=== PATIENT | male | born 1970 | race Caucasian/White ===

== ENCOUNTER 2016-12-04 15:30 | Inpatient (IN) | payer OTHER ==
[2016-12-04 16:53] VITALS: BMI 26.4
[2016-12-04] MEDS ORDERED: IBUPROFEN 400 MG TABLET (FP) PO PRN (17:07)
[2016-12-04] MEDS ORDERED: MAGNESIUM HYDROX 2400MG/30ML ORAL SUSPENSION 30 ML CUP PO PRN (17:07)
[2016-12-04] MEDS ORDERED: MENTHOL/PHENOL 1 EACH UD MM PRN (17:07)
[2016-12-04] MEDS ORDERED: NICOTINE POLACRILEX 4 MG GUM BC PRN (17:07)
[2016-12-04] MEDS ORDERED: MAG HYDROX/AL HYDROX/SIMETH 30 ML UNIT-DOSE CUP PO PRN (17:07)
[2016-12-04] MEDS ORDERED: guaiFENesin/D-METHORPHAN HB 10 ML UNIT-DOSE CUPS PO PRN (17:07)
[2016-12-04] MEDS ORDERED: MAGNESIUM CITRATE 300 ML BOTTLE PO PRN (17:07)
[2016-12-04] MEDS ORDERED: hydrOXYzine PAMOATE 50 MG CAPSULE (FP) PO PRN (17:07)
[2016-12-04] MEDS ORDERED: ACETAMINOPHEN 325 MG TABLET (FP) PO PRN (17:07)
[2016-12-04] MEDS ORDERED: LOPERAMIDE HCL 2 MG CAPSULE PO PRN (17:07)
[2016-12-04] MEDS ORDERED: P-EPHED 60MG/TRIPROLIDI 2.5MG TABLET PO PRN (17:07)
--- NOTE | 2016-12-04 17:07 | HP ---
COWS - Scale Resting Pulse: 1= [place] 81-100 Sweatin= Chills/Flushing Restless Observation: 1= Difficult to Sit Still Pupil Size: 1= Pupils >than Normal Bone or Joint Aches: 1= Mild Discomfort Runny Nose/ Eye Tearin= Runny Nose/Eyes GI Upset > 30mins: 2= Nausea/Diarrhea Tremor Observation: 2= Slight Tremor Visible Yawning Observation: 1= 1-2x During Session Anxiety or Irritability: 2=Irritable/Anxious Goose Flesh Skin: 3=Piloerection COWS Score: 17 Admission [facility] Chief Complaint: heroin and cocaine withdrawal sx Allergies/Adverse Reactions: Allergies Allergy/AdvReac Type Severity Reaction Status Date / Time No Known Allergies Allergy Verified 12/04/16 17:01 History of Present Illness: 46 yo [facility], PMHX heroin, marijuana and cocaine dependence PMHX HIV+, no seizures, no DTS has been in detox 2002, completed treatment, not on any medications, nicotine dependence 1 PPD. no psychiatric history, no h/o suicide attmepts Exam Limitations: No Limitations - Ebola screening Have you traveled outside of the country in the last 21 days: No Have you had contact with anyone from an Ebola affected area: No Have you been sick,other than usual withdrawal symptoms: No - Review of Systems Constitutional: Chills, Diaphoresis, Loss of Appetite, Malaise, Night Sweats, Weakness, Unintentional Wgt. Loss EENT: reports: Nose Congestion Respiratory: reports: No Symptoms reported Cardiac: reports: No Symptoms Reported GI: reports: Nausea, Poor Appetite, Poor Fluid Intake, Indigestion, Abdominal cramping : reports: No Symptoms Reported Musculoskeletal: reports: Back Pain, Joint Pain, Muscle Pain, Muscle Weakness, Neck Pain Integumentary: reports: Flushing, Sweating Endocrine: reports: No Symptoms Reported Hematology: reports: No Symptoms Reported Psychiatric: reports: Judgement Intact, Mood/Affect Appropiate, Orientated x3, Anxious, Depressed Other Systems: Reviewed and Negative Patient History - Patient Medical History Hx Anemia: No Hx Asthma: No Hx Chronic Obstructive Pulmonary Disease (COPD): No Hx Cancer: No Hx Cardiac Disorders: No Hx Congestive Heart Failure: No Hx Hypertension: No Hx Pacemaker: No HX Cerebrovascular Accident: No Hx Seizures: No Hx Dementia: No Hx Diabetes: No Hx Gastrointestinal Disorders: No Hx Liver Disease: No Hx Genitourinary Disorders: No Hx Sexually Transmitted Disorders: No Hx Renal Disease (ESRD): No Hx Thyroid Disease: No Hx Human Immunodeficiency Virus (HIV): No Hx Hepatitis C: Yes Hx Depression: No Hx Suicide Attempt: No Hx Bipolar Disorder: Yes Hx Schizophrenia: No - Patient Surgical History Past Surgical History: No Anesthesia Reaction: No - PPD History Previous Implant?: Yes Documented Results: Negative w/o proof Implanted On Prior [facility] Admission?: No PPD to be Administered?: Yes - Reproductive History Patient is a Female of Child Bearing Age (11 -55 yrs old): No Patient : No - Smoking Cessation Smoking history: Current every day smoker Have you smoked in the past 12 months: Yes Aproximately how many cigarettes per day: 20 Hx Chewing Tobacco Use: No Initiated information on smoking cessation: Yes 'Breaking Loose' booklet given: 12/04/16 - Substance & Tx. History Hx Alcohol Use: No Hx Substance Use: Yes Substance Use Type: Cocaine, Heroin, Marijuana, Opiates, Prescribed Hx Substance Use Treatment: Yes - Substances Abused Heroin Route: Injection Frequency: Daily Amount used: 3-4 bags Age of first use: 14 Date of Last Use: 12/03/16 Crack Route: Smoking Frequency: Daily Amount used: $300 Age of first use: 45 Date of Last Use: 12/03/16 Marijuana/Hashish Route: Smoking Frequency: Daily Amount used: 3-4 bags Age of first use: 15 Date of Last Use: 12/03/16 Family Disease History - Family Disease History Family Disease History: Diabetes: Grandparent (alcohol and cocaine addiction), Father, Mother, Heart Disease: Grandparent, Father, Mother, Other: Grandparent Admission Physical Exam BHS - Vital Signs Vital Signs: Vital Signs - 24 hr 12/04/16 16:51 Temperature 98.4 F Pulse Rate 90 Respiratory 18 Rate Blood Pressure 137/76 - Physical General Appearance: Yes: Nourished, Appropriately Dressed, Disheveled, Mild Distress, Thin, Tremorous, Irritable, Sweating, Anxious HEENTM: Yes: EOMI, Hearing grossly Normal, Normal ENT Inspection, Normocephalic , Normal Voice, Pharynx Normal, Nasal Congestion, Rhinorrhea Respiratory: Yes: Within Normal Limits, Chest Non-Tender, Lungs Clear, Normal Breath Sounds, No Respiratory Distress, No Accessory Muscle Use Neck: Yes: Within Normal Limits, No masses,lesions,Nodules, Supple, Trachea in good position Breast: Yes: Breast Exam Deferred Cardiology: Yes: Within Normal Limits, Regular Rhythm, Regular Rate, S1, S2 Abdominal: Yes: Normal Bowel Sounds, Non Tender, Flat, Increased Bowel Sounds Genitourinary: Yes: Within Normal Limits Back: Yes: Normal Inspection, Muscle Spasm Musculoskeletal: Yes: full range of Motion, Gait Steady, Pelvis Stable, Back pain, Muscle weakness Extremities: Yes: Normal Capillary Refill, Normal Inspection, Normal Range of Motion, Non-Tender, Tremors Neurological: Yes: global account manager II-XII NML intact, Fully Oriented, Alert, Motor Strength 5/5, Normal Response, Depressed Affect Integumentary: Yes: Normal Color, Warm, Diaphoresis, Moist, [place] Lymphatic: Yes: Within Normal Limits - Addiitonal Findings: heroin withdrawal sx - Diagnostic (1) AIDS (acquired immune deficiency syndrome) Current Visit: Yes Status: Chronic (2) Bipolar disorder Current Visit: Yes Status: Suspected (3) Cannabis dependence Current Visit: Yes Status: Chronic (4) Cocaine dependence, uncomplicated Current Visit: Yes Status: Chronic (5) Hepatitis C Current Visit: Yes Status: Chronic (6) Nicotine dependence Current Visit: Yes Status: Chronic (7) Opioid dependence with withdrawal Current Visit: Yes Status: Chronic Cleared for Admission [facility] - Detox or Rehab [facility] Level of Care: Medically Managed Detox Regimen/Protocol: Methadone [facility] Breath Alcohol Content Breath Alcohol Content: 0 Urine Drug Screen - Results Drug Screen Negative: No Urine Drug Screen Results: THC-Marijuana, JED-Cocaine, OPI-Opiates
[2016-12-04] MEDS ORDERED: METHADONE HCL 10 MG TABLET (FOR DETOX USE ONLY) PO ONE ×2 (17:30→23:00)
[2016-12-04] MEDS: diazePAM 5 MG TABLET PO PRN (18:59)
[2016-12-04] MEDS: NICOTINE 21 MG/24 HOURS TOPICAL PATCH TD SCH (19:05)
[2016-12-04 21:53] LABS: URINE APPEARANCE CLEAR; URINE BILIRUBIN NEGATIVE (NEGATIVE); URINE BLOOD NEGATIVE (NEGATIVE); URINE COLOR YELLOW; URINE GLUCOSE (UA) NEGATIVE (NEGATIVE); URINE KETONE NEGATIVE (NEGATIVE); URINE LEUK ESTERASE NEGATIVE (NEGATIVE); URINE NITRITE NEGATIVE (NEGATIVE); URINE PROTEIN NEGATIVE (NEGATIVE)
[2016-12-04] MEDS: THIAMINE HCL 100 MG TABLET (FP) PO SCH (22:23)
[2016-12-04] MEDS: ZOLPIDEM TARTRATE 5 MG TABLET PO PRN (22:23)
--- NOTE | 2016-12-05 09:14 | CONSULT ---
[facility] Psychiatric Consult - Data Date of interview: 12/05/16 Admission source: [facility] Identifying data: This is 46 years old male with history of Bipolar Disorder intoxicated with: Opioids, Cocaine, Cannabis and Nicotine Substance Abuse History: - Smoking Cessation. Smoking history: Current every day smoker. Have you smoked in the past 12 months: Yes. Aproximately how many cigarettes per day: 20. Hx Chewing Tobacco Use: No. Initiated information on smoking cessation: Yes. 'Breaking Loose' booklet given: 12/04/16. - Substance & Tx. History. Hx Alcohol Use: No. Hx Substance Use: Yes. Substance Use Type : Cocaine, Heroin, Marijuana, Opiates, Prescribed. Hx Substance Use Treatment: Yes. - Substances Abused. Heroin. Route: Injection. Frequency: Daily. Amount used: 3-4 bags. Age of first use: 14. Date of Last Use: 12/03/16. Crack. Route: Smoking. Frequency: Daily. Amount used: $300. Age of first use : 45. Date of Last Use: 12/03/16. Marijuana/Hashish. Route: Smoking. Frequency: Daily. Amount used: 3-4 bags. Age of first use: 15. Date of Last Use: 12/03/16 Medical History: AIDS, HepC+ Psychiatric History: Patient reports to carry Bipolar disorder, reports taking prior to admission: [place] Carbonate 300mg po bid Physical/Sexual Abuse/Trauma History: Denies Additional Comment: [place] Carbonate 300mg po bid Mental Status Exam - Mental Status Exam Alert and Oriented to: Person Patient Appearance: Unkempt Mood: Anxious Affect: Mood Congruent Patient Behavior: Cooperative Speech Pattern: Excessive, Pressured Voice Loudness: Mildly Loud Thought Process: Goal Oriented Thought Disorder: Being Controlled Hallucinations: Denies Suicidal Ideation: Denies Homicidal Ideation: Denies Sleep: Difficulty falling asleep Appetite: Fair Muscle strength/Tone: Normal Gait/Station: Normal Additional Comments: [place] Carbonate 300mg po bid Psychiatric Findings - Problem List ([place] 1, 2,3) (1) Cannabis dependence Current Visit: Yes Status: Chronic (2) Cocaine dependence, uncomplicated Current Visit: Yes Status: Chronic (3) Nicotine dependence Current Visit: Yes Status: Chronic (4) Opioid dependence with withdrawal Current Visit: Yes Status: Chronic (5) Bipolar disorder Current Visit: Yes Status: Suspected - Initial Treatment Plan Initial Treatment Plan: [place] Carbonate 300mg po bid
[2016-12-05 09:56] LABS: MCH 32.2 pg (25.7-33.7); MCHC 33.6 g/dl (32.0-35.9); MEAN CELL VOLUME 95.8 fl (80-96); MEAN PLT VOLUME 9.1 fl (7.5-11.1); PLATELET COUNT 169 K/MM3 (134-434); RDW 14.1 % (11.9-15.9); WHITE BLOOD COUNT 7.1 K/mm3 (4.0-10.0)
[2016-12-05] MEDS ORDERED: METHADONE HCL 10 MG TABLET (FOR DETOX USE ONLY) PO ONE (10:00)
[2016-12-05 10:18] LABS: ALBUMIN 3.3 g/dl (3.4-5.0); ALK PHOS 70 U/L (45-117); ANION GAP 8 (8-16); BILIRUBIN,TOTAL 0.6 mg/dL (0.2-1.0); CALCIUM 8.7 mg/dL (8.5-10.1); CO2 28 mmol/L (21-32); GLUCOSE,RANDOM 86 mg/dL (74-106); SGOT/AST 20 U/L (15-37); SGPT/ALT 29 U/L (12-78)
[2016-12-05 10:22] LABS: SICKLE CELL SCREEN NEGATIVE (NEGATIVE)
[2016-12-05] MEDS: LITHIUM CARBONATE 300 MG CAPSULE (FP) PO SCH ×2 (11:17→22:22)
[2016-12-05] MEDS: PRENATAL VITAMINS W/ FOLIC ACID TABLET (FP) PO SCH (11:17)
[2016-12-05] MEDS: NICOTINE 21 MG/24 HOURS TOPICAL PATCH TD SCH (11:20)
[2016-12-05] MEDS: diazePAM 5 MG TABLET PO PRN ×3 (11:25→22:23)
--- NOTE | 2016-12-05 12:28 | EKG ---
Test Reason : Blood Pressure : / mmHG Vent. Rate : 080 BPM Atrial Rate : 080 BPM P-R Int : 134 ms QRS Dur : 092 ms QT Int : 378 ms P-R-T Axes : 074 099 069 degrees QTc Int : 435 ms NORMAL SINUS RHYTHM RIGHTWARD AXIS BORDERLINE ECG NO PREVIOUS ECGS AVAILABLE Confirmed by AZRA HUTCHINSON, MAURICE ([id number]) on 12/05/2016 12:28:04 PM Referred By: Confirmed By:MAURICE OQUENDO MD
--- NOTE | 2016-12-05 13:12 | PN ---
BHS COWS - Scale Resting Pulse: 1= [place] 81-100 Sweatin=Flushed/Facial Moisture Restless Observation: 1= Difficult to Sit Still Pupil Size: 0= Normal to Room Light Bone or Joint Aches: 2= Severe Diffuse Aches Runny Nose/ Eye Tearin= Nasal Congestion GI Upset > 30mins: 0= None Tremor Observation of Outstretched Hands: 2= Slight Tremor Visible Yawning Observation: 1= 1-2x During Session Anxiety or Irritability: 2=Irritable/Anxious Goose Flesh Skin: 3=Piloerection COWS Score: 15 BHS Progress Note (SOAP) Subjective: shakes sweats body aches interrupted sleep irritable Objective: 12/05/16 13:11 Vital Signs Temperature 98.2 F 12/05/16 10:06 Pulse Rate 98 H 12/05/16 10:06 Respiratory Rate 18 12/05/16 10:06 Blood Pressure 123/77 12/05/16 10:06 O2 Sat by Pulse Oximetry (%) Laboratory Tests 12/04/16 12/05/16 12/05/16 20:30 07:00 07:00 WBC 7.1 RBC 5.00 Hgb 16.1 Hct 47.9 MCV 95.8 MCH 32.2 MCHC 33.6 RDW 14.1 Plt Count 169 MPV 9.1 Sickle Cell Screen Negative Sodium 142 Potassium 3.7 Chloride 106 Carbon Dioxide 28 Anion Gap 8 BUN 13 Creatinine 1.0 Creat Clearance w eGFR > 60 Random Glucose 86 Calcium 8.7 Total Bilirubin 0.6 AST 20 ALT 29 Alkaline Phosphatase 70 Total Protein 7.0 Albumin 3.3 L Urine Color Yellow Urine Appearance Clear Urine pH 6.0 Ur Specific [place] 1.015 Urine Protein Negative Urine Glucose (UA) Negative Urine Ketones Negative Urine Blood Negative Urine Nitrite Negative Urine Bilirubin Negative Urine Urobilinogen 2.0 Ur Leukocyte Esterase Negative RPR Titer 12/05/16 07:00 WBC RBC Hgb Hct MCV MCH MCHC RDW Plt Count MPV Sickle Cell Screen Sodium Potassium Chloride Carbon Dioxide Anion Gap BUN Creatinine Creat Clearance w eGFR Random Glucose Calcium Total Bilirubin AST ALT Alkaline Phosphatase Total Protein Albumin Urine Color Urine Appearance Urine pH Ur Specific [place] Urine Protein Urine Glucose (UA) Urine Ketones Urine Blood Urine Nitrite Urine Bilirubin Urine Urobilinogen Ur Leukocyte Esterase RPR Titer Nonreactive awake/alert ambulating no acute distress Assessment: 12/05/16 13:12 withdrawal sx Plan: continue detox increase fluids
[2016-12-05] MEDS: ZOLPIDEM TARTRATE 5 MG TABLET PO PRN (22:22)
[2016-12-05] MEDS: THIAMINE HCL 100 MG TABLET (FP) PO SCH (22:23)
[2016-12-05] MEDS: MUPIROCIN 2% TOPICAL OINTMENT 22 GM TUBE NS SCH (22:23)
[2016-12-06] MEDS: METHADONE HCL 5 MG TABLET (FOR DETOX USE ONLY) PO ONE ×2 (10:58→10:59)
[2016-12-06] MEDS: diazePAM 5 MG TABLET PO PRN ×3 (10:58→22:05)
[2016-12-06] MEDS: PRENATAL VITAMINS W/ FOLIC ACID TABLET (FP) PO SCH (10:58)
[2016-12-06] MEDS: MUPIROCIN 2% TOPICAL OINTMENT 22 GM TUBE NS SCH ×2 (10:59→22:36)
[2016-12-06] MEDS: LITHIUM CARBONATE 300 MG CAPSULE (FP) PO SCH ×2 (11:00→22:04)
--- NOTE | 2016-12-06 11:14 | PN ---
[facility] CIWA - CIWA Score Nausea/Vomitin Muscle Tremors: 3 Anxiety: 2 Agitation: 2 Paroxysmal Sweats: 1-Minimal Palms Moist Orientation: 0-Oriented Tacttile Disturbances: 1-Very Mild Itch/Numbness Auditory Disturbances: 1-Very Mild Visual Disturbances: 0-None Headache: 2-Mild CIWA-Ar Total Score: 15 BHS COWS - Scale Resting Pulse: 1= [place] 81-100 Sweatin= Chills/Flushing Restless Observation: 3= Extraneous Movement Pupil Size: 1= Pupils >than Normal Bone or Joint Aches: 2= Severe Diffuse Aches Runny Nose/ Eye Tearin= Runny Nose/Eyes GI Upset > 30mins: 3= Vomiting/Diarrhea Tremor Observation of Outstretched Hands: 2= Slight Tremor Visible Yawning Observation: 1= 1-2x During Session Anxiety or Irritability: 2=Irritable/Anxious Goose Flesh Skin: 0=Smooth Skin COWS Score: 18 S Progress Note (SOAP) Subjective: ALERT,IRRITABLE,ANXIOUS,INTERRUPTED SLEEP,PAIN IN THE BODY AND BACK Objective: 12/06/16 11:12 Vital Signs Temperature 96.8 F L 12/06/16 10:02 Pulse Rate 91 H 12/06/16 10:02 Respiratory Rate 18 12/06/16 10:02 Blood Pressure 129/77 12/06/16 10:02 O2 Sat by Pulse Oximetry (%) EKG NSR, Laboratory Last Values WBC 7.1 K/mm3 (4.0-10.0) 12/05/16 07:00 RBC 5.00 M/mm3 (4.00-5.60) 12/05/16 07:00 Hgb 16.1 GM/dL (11.7-16.9) 12/05/16 07:00 Hct 47.9 % (35.4-49) 12/05/16 07:00 MCV 95.8 fl (80-96) 12/05/16 07:00 MCH 32.2 pg (25.7-33.7) 12/05/16 07:00 MCHC 33.6 g/dl (32.0-35.9) 12/05/16 07:00 RDW 14.1 % (11.9-15.9) 12/05/16 07:00 Plt Count 169 K/MM3 (134-434) 12/05/16 07:00 MPV 9.1 fl (7.5-11.1) 12/05/16 07:00 Sickle Cell Screen Negative (NEGATIVE) 12/05/16 07:00 Sodium 142 mmol/L (136-145) 12/05/16 07:00 Potassium 3.7 mmol/L (3.5-5.1) 12/05/16 07:00 Chloride 106 mmol/L (98-107) 12/05/16 07:00 Carbon Dioxide 28 mmol/L (21-32) 12/05/16 07:00 Anion Gap 8 (8-16) 12/05/16 07:00 BUN 13 mg/dL (7-18) 12/05/16 07:00 Creatinine 1.0 mg/dL (0.7-1.3) 12/05/16 07:00 Creat Clearance w eGFR > 60 (>60) 12/05/16 07:00 Random Glucose 86 mg/dL (74-106) 12/05/16 07:00 Calcium 8.7 mg/dL (8.5-10.1) 12/05/16 07:00 Total Bilirubin 0.6 mg/dL (0.2-1.0) 12/05/16 07:00 AST 20 U/L (15-37) 12/05/16 07:00 ALT 29 U/L (12-78) 12/05/16 07:00 Alkaline Phosphatase 70 U/L (45-117) 12/05/16 07:00 Total Protein 7.0 g/dl (6.4-8.2) 12/05/16 07:00 Albumin 3.3 g/dl (3.4-5.0) L 12/05/16 07:00 Urine Color Yellow 12/04/16 20:30 Urine Appearance Clear 12/04/16 20:30 Urine pH 6.0 (5.0-8.0) 12/04/16 20:30 Ur Specific [place] 1.015 (1.005-1.025) 12/04/16 20:30 Urine Protein Negative (NEGATIVE) 12/04/16 20:30 Urine Glucose (UA) Negative (NEGATIVE) 12/04/16 20:30 Urine Ketones Negative (NEGATIVE) 12/04/16 20:30 Urine Blood Negative (NEGATIVE) 12/04/16 20:30 Urine Nitrite Negative (NEGATIVE) 12/04/16 20:30 Urine Bilirubin Negative (NEGATIVE) 12/04/16 20:30 Urine Urobilinogen 2.0 mg/dL (0.2-1.0) 12/04/16 20:30 Ur Leukocyte Esterase Negative (NEGATIVE) 12/04/16 20:30 RPR Titer Nonreactive (NONREACTIVE) 12/05/16 07:00 Assessment: 12/06/16 11:13 WITHDRAWAL SYMPTOM Plan: CONTINUE DETOX
[2016-12-06] MEDS: NICOTINE 21 MG/24 HOURS TOPICAL PATCH TD SCH (13:21)
[2016-12-06] MEDS: THIAMINE HCL 100 MG TABLET (FP) PO SCH (22:04)
[2016-12-06] MEDS: ZOLPIDEM TARTRATE 5 MG TABLET PO PRN (22:04)
[2016-12-07] MEDS ORDERED: METHADONE HCL 5 MG TABLET (FOR DETOX USE ONLY) PO ONE (10:00)
[2016-12-07] MEDS: LITHIUM CARBONATE 300 MG CAPSULE (FP) PO SCH ×2 (10:56→23:09)
[2016-12-07] MEDS: PRENATAL VITAMINS W/ FOLIC ACID TABLET (FP) PO SCH (10:56)
[2016-12-07] MEDS: MUPIROCIN 2% TOPICAL OINTMENT 22 GM TUBE NS SCH ×2 (10:56→23:09)
[2016-12-07] MEDS: NICOTINE 21 MG/24 HOURS TOPICAL PATCH TD SCH (10:57)
[2016-12-07] MEDS: diazePAM 5 MG TABLET PO PRN (10:59)
--- NOTE | 2016-12-07 12:01 | PN ---
BHS Progress Note (SOAP) Subjective: SWEATS, SHAKES, BACK PAIN Objective: 12/07/16 12:00 Vital Signs - 8 hr 12/07/16 12/07/16 06:46 10:00 Temperature 96.8 F L 100.0 F H Pulse Rate 75 105 H Respiratory 16 18 Rate Blood Pressure 116/68 118/72 Laboratory Last Values WBC 7.1 K/mm3 (4.0-10.0) 12/05/16 07:00 RBC 5.00 M/mm3 (4.00-5.60) 12/05/16 07:00 Hgb 16.1 GM/dL (11.7-16.9) 12/05/16 07:00 Hct 47.9 % (35.4-49) 12/05/16 07:00 MCV 95.8 fl (80-96) 12/05/16 07:00 MCH 32.2 pg (25.7-33.7) 12/05/16 07:00 MCHC 33.6 g/dl (32.0-35.9) 12/05/16 07:00 RDW 14.1 % (11.9-15.9) 12/05/16 07:00 Plt Count 169 K/MM3 (134-434) 12/05/16 07:00 MPV 9.1 fl (7.5-11.1) 12/05/16 07:00 Sickle Cell Screen Negative (NEGATIVE) 12/05/16 07:00 Sodium 142 mmol/L (136-145) 12/05/16 07:00 Potassium 3.7 mmol/L (3.5-5.1) 12/05/16 07:00 Chloride 106 mmol/L (98-107) 12/05/16 07:00 Carbon Dioxide 28 mmol/L (21-32) 12/05/16 07:00 Anion Gap 8 (8-16) 12/05/16 07:00 BUN 13 mg/dL (7-18) 12/05/16 07:00 Creatinine 1.0 mg/dL (0.7-1.3) 12/05/16 07:00 Creat Clearance w eGFR > 60 (>60) 12/05/16 07:00 Random Glucose 86 mg/dL (74-106) 12/05/16 07:00 Calcium 8.7 mg/dL (8.5-10.1) 12/05/16 07:00 Total Bilirubin 0.6 mg/dL (0.2-1.0) 12/05/16 07:00 AST 20 U/L (15-37) 12/05/16 07:00 ALT 29 U/L (12-78) 12/05/16 07:00 Alkaline Phosphatase 70 U/L (45-117) 12/05/16 07:00 Total Protein 7.0 g/dl (6.4-8.2) 12/05/16 07:00 Albumin 3.3 g/dl (3.4-5.0) L 12/05/16 07:00 Urine Color Yellow 12/04/16 20:30 Urine Appearance Clear 12/04/16 20:30 Urine pH 6.0 (5.0-8.0) 12/04/16 20:30 Ur Specific [place] 1.015 (1.005-1.025) 12/04/16 20:30 Urine Protein Negative (NEGATIVE) 12/04/16 20:30 Urine Glucose (UA) Negative (NEGATIVE) 12/04/16 20:30 Urine Ketones Negative (NEGATIVE) 12/04/16 20:30 Urine Blood Negative (NEGATIVE) 12/04/16 20:30 Urine Nitrite Negative (NEGATIVE) 12/04/16 20:30 Urine Bilirubin Negative (NEGATIVE) 12/04/16 20:30 Urine Urobilinogen 2.0 mg/dL (0.2-1.0) 12/04/16 20:30 Ur Leukocyte Esterase Negative (NEGATIVE) 12/04/16 20:30 [place] 0 MEQ/L (0.6-1.2) L 12/06/16 06:00 RPR Titer Nonreactive (NONREACTIVE) 12/05/16 07:00 LAB NOTED Assessment: 12/07/16 12:00 WITHDRAWAL SX Plan: CONTINUE DETOX
[2016-12-07] MEDS: THIAMINE HCL 100 MG TABLET (FP) PO SCH (23:09)
[2016-12-07] MEDS: diphenhydrAMINE HCL 50 MG CAPSULE PO PRN (23:10)
[2016-12-08] MEDS ORDERED: METHADONE HCL 10 MG TABLET (FOR DETOX USE ONLY) PO ONE (10:00)
[2016-12-08] MEDS: PRENATAL VITAMINS W/ FOLIC ACID TABLET (FP) PO SCH (10:41)
[2016-12-08] MEDS: NICOTINE 21 MG/24 HOURS TOPICAL PATCH TD SCH (10:42)
[2016-12-08] MEDS: LITHIUM CARBONATE 300 MG CAPSULE (FP) PO SCH ×2 (10:43→22:38)
[2016-12-08] MEDS: MUPIROCIN 2% TOPICAL OINTMENT 22 GM TUBE NS SCH ×2 (10:44→22:38)
--- NOTE | 2016-12-08 19:30 | PN ---
[facility] Progress Note (SOAP) Objective: 12/08/16 19:29 Vital Signs - 8 hr 12/08/16 12/08/16 14:39 17:36 Temperature 98.1 F 97.7 F Pulse Rate 104 H 79 Respiratory 18 18 Rate Blood Pressure 134/80 128/74 Laboratory Last Values WBC 7.1 K/mm3 (4.0-10.0) 12/05/16 07:00 RBC 5.00 M/mm3 (4.00-5.60) 12/05/16 07:00 Hgb 16.1 GM/dL (11.7-16.9) 12/05/16 07:00 Hct 47.9 % (35.4-49) 12/05/16 07:00 MCV 95.8 fl (80-96) 12/05/16 07:00 MCH 32.2 pg (25.7-33.7) 12/05/16 07:00 MCHC 33.6 g/dl (32.0-35.9) 12/05/16 07:00 RDW 14.1 % (11.9-15.9) 12/05/16 07:00 Plt Count 169 K/MM3 (134-434) 12/05/16 07:00 MPV 9.1 fl (7.5-11.1) 12/05/16 07:00 Sickle Cell Screen Negative (NEGATIVE) 12/05/16 07:00 Sodium 142 mmol/L (136-145) 12/05/16 07:00 Potassium 3.7 mmol/L (3.5-5.1) 12/05/16 07:00 Chloride 106 mmol/L (98-107) 12/05/16 07:00 Carbon Dioxide 28 mmol/L (21-32) 12/05/16 07:00 Anion Gap 8 (8-16) 12/05/16 07:00 BUN 13 mg/dL (7-18) 12/05/16 07:00 Creatinine 1.0 mg/dL (0.7-1.3) 12/05/16 07:00 Creat Clearance w eGFR > 60 (>60) 12/05/16 07:00 Random Glucose 86 mg/dL (74-106) 12/05/16 07:00 Calcium 8.7 mg/dL (8.5-10.1) 12/05/16 07:00 Total Bilirubin 0.6 mg/dL (0.2-1.0) 12/05/16 07:00 AST 20 U/L (15-37) 12/05/16 07:00 ALT 29 U/L (12-78) 12/05/16 07:00 Alkaline Phosphatase 70 U/L (45-117) 12/05/16 07:00 Total Protein 7.0 g/dl (6.4-8.2) 12/05/16 07:00 Albumin 3.3 g/dl (3.4-5.0) L 12/05/16 07:00 Urine Color Yellow 12/04/16 20:30 Urine Appearance Clear 12/04/16 20:30 Urine pH 6.0 (5.0-8.0) 12/04/16 20:30 Ur Specific [place] 1.015 (1.005-1.025) 12/04/16 20:30 Urine Protein Negative (NEGATIVE) 12/04/16 20:30 Urine Glucose (UA) Negative (NEGATIVE) 12/04/16 20:30 Urine Ketones Negative (NEGATIVE) 12/04/16 20:30 Urine Blood Negative (NEGATIVE) 12/04/16 20:30 Urine Nitrite Negative (NEGATIVE) 12/04/16 20:30 Urine Bilirubin Negative (NEGATIVE) 12/04/16 20:30 Urine Urobilinogen 2.0 mg/dL (0.2-1.0) 12/04/16 20:30 Ur Leukocyte Esterase Negative (NEGATIVE) 12/04/16 20:30 [place] 0 MEQ/L (0.6-1.2) L 12/06/16 06:00 RPR Titer Nonreactive (NONREACTIVE) 12/05/16 07:00 labs noted Assessment: 12/08/16 19:30 Withdrawal sx.
[2016-12-08] MEDS: diphenhydrAMINE HCL 50 MG CAPSULE PO PRN (22:38)
[2016-12-08] MEDS: THIAMINE HCL 100 MG TABLET (FP) PO SCH (22:38)
[2016-12-09] MEDS ORDERED: METHADONE HCL 5 MG TABLET (FOR DETOX USE ONLY) PO ONE (06:00)
--- NOTE | 2016-12-09 09:02 | DS ---
[facility] Detox Discharge Summary Admission Date: 12/04/16 Discharge Date: 12/09/16 - History Present History: Cannabis Dependence, Cocaine Dependence, Opioid Dependence - Physical Exam Results Vital Signs: Vital Signs Temperature 97.7 F 12/09/16 06:00 Pulse Rate 87 12/09/16 06:00 Respiratory Rate 18 12/09/16 06:00 Blood Pressure 129/74 12/09/16 06:00 O2 Sat by Pulse Oximetry (%) - Treatment Hospital Course: Detox Protocol Followed, Detoxed Safely, Responded well, Discharged Condition Good, Rehab Referral Accepted - Medication Discharge Medications: Ambulatory Orders [place] Carbonate [Eskalith -] 300 mg PO BID #60 cap 12/05/16 - Diagnosis (1) AIDS (acquired immune deficiency syndrome) Current Visit: Yes Status: Chronic (2) Cannabis dependence Current Visit: Yes Status: Chronic (3) Cocaine dependence, uncomplicated Current Visit: Yes Status: Chronic (4) Hepatitis C Current Visit: Yes Status: Chronic Qualifiers: Viral hepatitis chronicity: chronic Hepatic coma status: without hepatic coma Qualified Code(s): B18.2 - Chronic viral hepatitis C (5) Nicotine dependence Current Visit: Yes Status: Chronic Qualifiers: Nicotine product type: cigarettes Substance use status: uncomplicated Qualified Code(s): F17.210 - Nicotine dependence, cigarettes, uncomplicated (6) Opioid dependence with withdrawal Current Visit: Yes Status: Chronic - AMA Did Patient Leave Against Medical Advice: No (going [facility])
[2016-12-09 09:53] VITALS: BP 136/77; PULSE 114; TEMP 97.3
[2016-12-09] MEDS: PRENATAL VITAMINS W/ FOLIC ACID TABLET (FP) PO SCH (10:52)
[2016-12-09] MEDS: LITHIUM CARBONATE 300 MG CAPSULE (FP) PO SCH (10:52)
[2016-12-09] MEDS: MUPIROCIN 2% TOPICAL OINTMENT 22 GM TUBE NS SCH (10:52)
[2016-12-09] MEDS: NICOTINE 21 MG/24 HOURS TOPICAL PATCH TD SCH (10:53)
== END 2016-12-09 11:42 | disposition home or self-care (01) | DRG 896 ==
LOC: YASAS 15:30 → Y6N 17:59
PROVIDERS: ADMIT Internal Medicine Addiction Medicine; ATTEND Internal Medicine Addiction Medicine
PROC: HZ2ZZZZ Detoxification Services for Substance Abuse Treatment (ICD-10-PCS; principal; 2016-12-04)
DX: F19.230 Other psychoactive substance dependence with withdrawal, uncomplicated (principal); B20 Human immunodeficiency virus [HIV] disease; F14.20 Cocaine dependence, uncomplicated; F11.23 Opioid dependence with withdrawal; F12.20 Cannabis dependence, uncomplicated; F17.210 Nicotine dependence, cigarettes, uncomplicated; F31.9 Bipolar disorder, unspecified; B18.2 Chronic viral hepatitis C
CPT/HCPCS: 36415; 80053; 80178; 81003; 85027; 85660; 86593; 93005; 93010

== ENCOUNTER 2017-02-09 10:04 | Inpatient (IN) | payer OTHER ==
[2017-02-09 10:53] VITALS: BMI 24.6
--- NOTE | 2017-02-09 11:39 | HP ---
CIWA Score - CIWA Score Nausea/Vomitin (N/V) Muscle Tremors: 1-None Visible, but [place] Anxiety: 4-Mod. Anxious/Guarded Agitation: 4-Moderately Restless Paroxysmal Sweats: 1-Minimal Palms Moist Orientation: 0-Oriented Tacttile Disturbances: 3-Moderate Itch/Numb/Burn Auditory Disturbances: 0-None Visual Disturbances: 0-None Headache: 1-Very Mild CIWA-Ar Total Score: 19 Admission ROS BHS - HPI Chief Complaint: DETOX TX FOR ALCOHOL WITHDRAWAL SX Allergies/Adverse Reactions: Allergies Allergy/AdvReac Type Severity Reaction Status Date / Time No Known Allergies Allergy Verified 02/09/17 10:56 History of Present Illness: 46 Y/O H/M WITH A HX OF ALCOHOL,COCAINE AND MARIJUANA DEPENDENCE SEEKING DETOX TX. Exam Limitations: No Limitations - Ebola screening Have you traveled outside of the country in the last 21 days: No Have you had contact with anyone from an Ebola affected area: No Have you been sick,other than usual withdrawal symptoms: No Do you have a fever: No - Review of Systems Constitutional: Chills, Loss of Appetite, Night Sweats, Changes in sleep, Unintentional Wgt. Loss EENT: reports: Blurred Vision, Tearing, Recent change in vision ("I SUPPOSED TO WEAR GLASSES'), Nose Congestion Respiratory: reports: No Symptoms reported Cardiac: reports: Lightheadedness GI: reports: Diarrhea, Nausea, Poor Appetite, Poor Fluid Intake, Vomiting : reports: Frequency Musculoskeletal: reports: No Symptoms Reported Integumentary: reports: No Symptoms Reported Neuro: reports: Headache, Tremors, Unsteady Gait, Dizziness Endocrine: reports: No Symptoms Reported Hematology: reports: No Symptoms Reported Psychiatric: reports: Anxious Other Systems: Reviewed and Negative Patient History - Patient Medical History Hx Anemia: No Hx Asthma: No Hx Chronic Obstructive Pulmonary Disease (COPD): No Hx Cancer: No Hx Cardiac Disorders: No Hx Congestive Heart Failure: No Hx Hypertension: No Hx Pacemaker: No HX Cerebrovascular Accident: No Hx Seizures: No Hx Dementia: No Hx Diabetes: No Hx Gastrointestinal Disorders: No Hx Liver Disease: No Hx Genitourinary Disorders: No Hx Sexually Transmitted Disorders: No Hx Renal Disease (ESRD): No Hx Thyroid Disease: No Hx Human Immunodeficiency Virus (HIV): Yes (SINCE 1996;STOPPED TAKING MEDS X 7 MONTHS.) Hx Hepatitis C: Yes (IN THE PROCESS OF TREATMENT WITH NEW MEDICATION) Hx Depression: Yes Hx Suicide Attempt: No Hx Bipolar Disorder: Yes (ON LITHIUM +) Hx Schizophrenia: No - Patient Surgical History Past Surgical History: No Hx Neurologic Surgery: No Hx Cataract Extraction: No Hx Cardiac Surgery: No Hx Lung Surgery: No Hx Breast Surgery: No Hx Breast Biopsy: No Hx Abdominal Surgery: No Hx Appendectomy: No Hx Cholecystectomy: No Hx Genitourinary Surgery: No Hx Orthopedic Surgery: No Anesthesia Reaction: No - PPD History Previous Implant?: Yes Documented Results: Negative w/proof Implanted On Prior [facility] Admission?: Yes Date: 12/06/16 PPD to be Administered?: No - Reproductive History Patient is a Female of Child Bearing Age (11 -55 yrs old): No (MALE) - Smoking Cessation Smoking history: Current every day smoker Have you smoked in the past 12 months: Yes Aproximately how many cigarettes per day: 20 Hx Chewing Tobacco Use: No Initiated information on smoking cessation: Yes 'Breaking Loose' booklet given: 02/09/17 - Substance & Tx. History Hx Alcohol Use: Yes (BARCADI/BEER) Hx Substance Use: Yes (CRACK/MARIJUANA) Substance Use Type: Alcohol, Cocaine, Marijuana Hx Substance Use Treatment: Yes (LAST TX AT [facility] DETOX) - Substances Abused Alcohol Route: Oral Frequency: Daily Amount used: rum(1 pint)/beer-(6-7 cans24 oz) Age of first use: 14 Date of Last Use: 02/08/17 Crack Route: Smoking Frequency: Daily Amount used: $170 Age of first use: 45 Date of Last Use: 02/08/17 Family Disease History - Family Disease History Family Disease History: Diabetes: Grandparent (alcohol and cocaine addiction), Father, Mother, Heart Disease: Grandparent, Father, Mother, Other: Grandparent Admission Physical Exam BHS - Vital Signs Vital Signs: Vital Signs - 24 hr 02/09/17 10:39 Temperature 97.3 F L Pulse Rate 80 Respiratory 120 H Rate Blood Pressure 116/77 - Physical General Appearance: Yes: Moderate Distress, Alcohol on Breath, Intoxicated, Irritable, Anxious HEENTM: Yes: EOMI, Normocephalic, SONIA, Pharynx Normal, Nasal Congestion, Rhinorrhea Respiratory: Yes: Chest Non-Tender, Lungs Clear, Normal Breath Sounds, No Respiratory Distress Neck: Yes: No masses,lesions,Nodules, Supple, Trachea in good position Breast: Yes: Breast Exam Deferred Cardiology: Yes: Regular Rhythm, Regular Rate, S1, S2 Abdominal: Yes: Normal Bowel Sounds, Non Tender, Flat, Soft Genitourinary: Yes: Other (N/C) Back: Yes: Within Normal Limits Musculoskeletal: Yes: full range of Motion, Gait Steady Extremities: Yes: Normal Range of Motion, Non-Tender Neurological: Yes: tig welder II-XII NML intact, Fully Oriented, Alert, Motor Strength 5/5 Integumentary: Yes: Dry, Warm Lymphatic: Yes: Within Normal Limits - Diagnostic (1) AIDS (acquired immune deficiency syndrome) Current Visit: Yes Status: Chronic (2) Cannabis dependence Current Visit: Yes Status: Acute (3) Cocaine dependence, uncomplicated Current Visit: Yes Status: Acute (4) Hepatitis C Current Visit: No Status: Chronic Qualifiers: Viral hepatitis chronicity: chronic Hepatic coma status: without hepatic coma Qualified Code(s): B18.2 - Chronic viral hepatitis C (5) Nicotine dependence Current Visit: Yes Status: Acute Qualifiers: Nicotine product type: cigarettes Substance use status: uncomplicated Qualified Code(s): F17.210 - Nicotine dependence, cigarettes, uncomplicated (6) Opioid dependence with withdrawal Current Visit: No Status: Inactive Cleared for Admission [facility] - Detox or Rehab [facility] Level of Care: Medically Managed Detox Regimen/Protocol: Librium [facility] Breath Alcohol Content Breath Alcohol Content: 0 Urine Drug Screen - Results Drug Screen Negative: No Urine Drug Screen Results: THC-Marijuana, JED-Cocaine
[2017-02-09] MEDS ORDERED: MAGNESIUM CITRATE 300 ML BOTTLE PO PRN (12:43)
[2017-02-09] MEDS ORDERED: NICOTINE POLACRILEX 4 MG GUM BC PRN (12:43)
[2017-02-09] MEDS ORDERED: P-EPHED 60MG/TRIPROLIDI 2.5MG TABLET PO PRN (12:43)
[2017-02-09] MEDS ORDERED: chlordiazePOXIDE HCL 25 MG CAPSULE PO PRN (12:43)
[2017-02-09] MEDS ORDERED: guaiFENesin/D-METHORPHAN HB 10 ML UNIT-DOSE CUPS PO PRN (12:43)
[2017-02-09] MEDS ORDERED: IBUPROFEN 400 MG TABLET (FP) PO PRN (12:43)
[2017-02-09] MEDS ORDERED: MAGNESIUM HYDROX 2400MG/30ML ORAL SUSPENSION 30 ML CUP PO PRN (12:43)
[2017-02-09] MEDS ORDERED: LOPERAMIDE HCL 2 MG CAPSULE PO PRN (12:43)
[2017-02-09] MEDS ORDERED: MAG HYDROX/AL HYDROX/SIMETH 30 ML UNIT-DOSE CUP PO PRN (12:43)
[2017-02-09] MEDS ORDERED: chlordiazePOXIDE HCL 25 MG CAPSULE PO ONE (12:43)
[2017-02-09] MEDS ORDERED: ACETAMINOPHEN 325 MG TABLET (FP) PO PRN (12:43)
[2017-02-09] MEDS ORDERED: hydrOXYzine PAMOATE 25 MG CAPSULE (FP) PO PRN (12:43)
[2017-02-09] MEDS ORDERED: MENTHOL/PHENOL 1 EACH UD MM PRN (12:43)
[2017-02-09] MEDS: NICOTINE 21 MG/24 HOURS TOPICAL PATCH TD SCH (13:02)
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
[2017-02-09] MEDS: GABAPENTIN 300 MG CAPSULE (FP) PO SCH ×2 (14:42→22:54)
--- NOTE | 2017-02-09 15:36 | EKG ---
Test Reason : Blood Pressure : / mmHG Vent. Rate : 086 BPM Atrial Rate : 086 BPM P-R Int : 130 ms QRS Dur : 076 ms QT Int : 360 ms P-R-T Axes : 077 096 067 degrees QTc Int : 430 ms NORMAL SINUS RHYTHM RIGHTWARD AXIS ATRIAL ABNORMALITY BORDERLINE ECG WHEN COMPARED WITH ECG OF 04-DEC-2016 18:04, NO SIGNIFICANT CHANGE WAS FOUND Confirmed by MANJEET CHRISTOPHER MD ([id number]) on 02/09/2017 3:36:36 PM Referred By: Confirmed By:MANJEET CHRISTOPHER MD
[2017-02-09 16:29] LABS: URINE APPEARANCE CLEAR; URINE BILIRUBIN NEGATIVE (NEGATIVE); URINE BLOOD NEGATIVE (NEGATIVE); URINE COLOR LTYELLOW; URINE GLUCOSE (UA) NEGATIVE (NEGATIVE); URINE KETONE NEGATIVE (NEGATIVE); URINE NITRITE NEGATIVE (NEGATIVE); URINE PROTEIN NEGATIVE (NEGATIVE); URINE UROBILINOGEN NEGATIVE mg/dL (0.2-1.0)
[2017-02-09] MEDS: chlordiazePOXIDE HCL 25 MG CAPSULE PO SCH ×2 (16:34→22:56)
[2017-02-09] MEDS: LITHIUM CARBONATE 300 MG CAPSULE (FP) PO SCH ×2 (17:57→22:53)
[2017-02-09 18:57] LABS: URINE LEUK ESTERASE Negative (NEGATIVE)
[2017-02-09] MEDS: THIAMINE HCL 100 MG TABLET (FP) PO SCH (22:54)
[2017-02-09] MEDS: ZOLPIDEM TARTRATE 5 MG TABLET PO PRN (22:54)
[2017-02-10] MEDS: chlordiazePOXIDE HCL 25 MG CAPSULE PO SCH ×4 (05:53→22:24)
[2017-02-10] MEDS: GABAPENTIN 300 MG CAPSULE (FP) PO SCH ×3 (05:53→22:25)
[2017-02-10] MEDS: LITHIUM CARBONATE 300 MG CAPSULE (FP) PO SCH ×3 (06:15→22:56)
[2017-02-10 09:55] LABS: MCH 31.4 pg (25.7-33.7); MCHC 33.4 g/dl (32.0-35.9); MEAN PLT VOLUME 8.6 fl (7.5-11.1); PLATELET COUNT 231 K/MM3 (134-434); WHITE BLOOD COUNT 9.9 K/mm3 (4.0-10.0)
[2017-02-10 10:11] LABS: SGOT/AST 32 U/L (15-37); SGPT/ALT 49 U/L (12-78)
[2017-02-10 10:14] LABS: ALBUMIN 3.2 g/dl (3.4-5.0); ALK PHOS 64 U/L (45-117); ANION GAP 9 (8-16); BILIRUBIN,TOTAL 0.4 mg/dL (0.2-1.0); CALCIUM 8.9 mg/dL (8.5-10.1); CO2 24 mmol/L (21-32); CREATININE 1.1 mg/dL (0.7-1.3); GLUCOSE,RANDOM 145 mg/dL (74-106); TOT PROT 7.6 g/dl (6.4-8.2)
[2017-02-10] MEDS: PRENATAL VITAMINS W/ FOLIC ACID TABLET (FP) PO SCH (10:22)
[2017-02-10] MEDS: NICOTINE 21 MG/24 HOURS TOPICAL PATCH TD SCH (10:22)
--- NOTE | 2017-02-10 10:32 | PN ---
[facility] CIWA - CIWA Score Nausea/Vomitin (DIARRHEA) Muscle Tremors: 4-Moderate,w/Arms Extend Anxiety: 4-Mod. Anxious/Guarded Agitation: 4-Moderately Restless Paroxysmal Sweats: 1-Minimal Palms Moist Orientation: 0-Oriented Tacttile Disturbances: 3-Moderate Itch/Numb/Burn Auditory Disturbances: 0-None Visual Disturbances: 0-None Headache: 0-None Present CIWA-Ar Total Score: 19 BHS Progress Note (SOAP) Subjective: C/O ANXIETY,SWEATS,RESTLESSNESS,DIARRHEA. Objective: 02/10/17 10:31 Vital Signs Temperature 99.3 F 02/10/17 09:05 Pulse Rate 108 H 02/10/17 09:05 Respiratory Rate 20 02/10/17 09:05 Blood Pressure 126/73 02/10/17 09:05 O2 Sat by Pulse Oximetry (%) Laboratory Last Values WBC 9.9 K/mm3 (4.0-10.0) D 02/10/17 07:00 RBC 4.96 M/mm3 (4.00-5.60) 02/10/17 07:00 Hgb 15.5 GM/dL (11.7-16.9) 02/10/17 07:00 Hct 46.6 % (35.4-49) 02/10/17 07:00 MCV 94.0 fl (80-96) 02/10/17 07:00 MCH 31.4 pg (25.7-33.7) 02/10/17 07:00 MCHC 33.4 g/dl (32.0-35.9) 02/10/17 07:00 RDW 14.0 % (11.9-15.9) 02/10/17 07:00 Plt Count 231 K/MM3 (134-434) D 02/10/17 07:00 MPV 8.6 fl (7.5-11.1) 02/10/17 07:00 Urine Color Ltyellow 02/09/17 15:30 Urine Appearance Clear 02/09/17 15:30 Urine pH 7.0 (5.0-8.0) 02/09/17 15:30 Ur Specific [place] 1.008 (1.001-1.035) 02/09/17 15:30 Urine Protein Negative (NEGATIVE) 02/09/17 15:30 Urine Glucose (UA) Negative (NEGATIVE) 02/09/17 15:30 Urine Ketones Negative (NEGATIVE) 02/09/17 15:30 Urine Blood Negative (NEGATIVE) 02/09/17 15:30 Urine Nitrite Negative (NEGATIVE) 02/09/17 15:30 Urine Bilirubin Negative (NEGATIVE) 02/09/17 15:30 Urine Urobilinogen Negative mg/dL (0.2-1.0) 02/09/17 15:30 Ur Leukocyte Esterase Negative (NEGATIVE) 02/09/17 15:30 OTHER LABSPENDING Assessment: 02/10/17 10:31 WITHDRAWAL SX Plan: CONTINUE DETOX IMODIUM NEEDED
[2017-02-10] MEDS: ZOLPIDEM TARTRATE 5 MG TABLET PO PRN (22:24)
[2017-02-10] MEDS: THIAMINE HCL 100 MG TABLET (FP) PO SCH (22:24)
[2017-02-10] MEDS ORDERED: LITHIUM CARBONATE 300 MG, LITHIUM CARBONATE 150 MG PO SCH (22:45)
[2017-02-10] MEDS ORDERED: LITHIUM CARBONATE 150 MG CAPSULE ONE (22:47)
[2017-02-10] MEDS ORDERED: LITHIUM CARBONATE 300 MG CAPSULE (FP) ONE (22:47)
[2017-02-10] MEDS: LITHIUM CARBONATE 150 MG CAPSULE PO SCH (22:55)
[2017-02-11] MEDS: LITHIUM CARBONATE 150 MG CAPSULE PO SCH (05:23)
[2017-02-11] MEDS: chlordiazePOXIDE HCL 25 MG CAPSULE PO SCH ×2 (05:23→10:25)
[2017-02-11] MEDS: GABAPENTIN 300 MG CAPSULE (FP) PO SCH (05:23)
[2017-02-11 09:12] VITALS: BP 125/73; PULSE 103; TEMP 98.3
[2017-02-11] MEDS: PRENATAL VITAMINS W/ FOLIC ACID TABLET (FP) PO SCH (10:25)
[2017-02-11] MEDS: NICOTINE 21 MG/24 HOURS TOPICAL PATCH TD SCH (10:25)
--- NOTE | 2017-02-11 10:42 | PN ---
[facility] CIWA - CIWA Score Nausea/Vomitin-No Nausea/No Vomiting Muscle Tremors: 3 Anxiety: 5 Agitation: 4-Moderately Restless Paroxysmal Sweats: 1-Minimal Palms Moist Orientation: 0-Oriented Tacttile Disturbances: 3-Moderate Itch/Numb/Burn Auditory Disturbances: 0-None Visual Disturbances: 0-None Headache: 0-None Present CIWA-Ar Total Score: 16 BHS Progress Note (SOAP) Subjective: IRRITABILITY,SWEATS,ANXIETY. Objective: 02/11/17 10:41 Vital Signs Temperature 98.3 F 02/11/17 09:11 Pulse Rate 103 H 02/11/17 09:11 Respiratory Rate 18 02/11/17 09:11 Blood Pressure 125/73 02/11/17 09:11 O2 Sat by Pulse Oximetry (%) Laboratory Last Values WBC 9.9 K/mm3 (4.0-10.0) D 02/10/17 07:00 RBC 4.96 M/mm3 (4.00-5.60) 02/10/17 07:00 Hgb 15.5 GM/dL (11.7-16.9) 02/10/17 07:00 Hct 46.6 % (35.4-49) 02/10/17 07:00 MCV 94.0 fl (80-96) 02/10/17 07:00 MCH 31.4 pg (25.7-33.7) 02/10/17 07:00 MCHC 33.4 g/dl (32.0-35.9) 02/10/17 07:00 RDW 14.0 % (11.9-15.9) 02/10/17 07:00 Plt Count 231 K/MM3 (134-434) D 02/10/17 07:00 MPV 8.6 fl (7.5-11.1) 02/10/17 07:00 Sodium 136 mmol/L (136-145) 02/10/17 07:00 Potassium 4.1 mmol/L (3.5-5.1) 02/10/17 07:00 Chloride 103 mmol/L (98-107) 02/10/17 07:00 Carbon Dioxide 24 mmol/L (21-32) 02/10/17 07:00 Anion Gap 9 (8-16) 02/10/17 07:00 BUN 11 mg/dL (7-18) 02/10/17 07:00 Creatinine 1.1 mg/dL (0.7-1.3) 02/10/17 07:00 Creat Clearance w eGFR > 60 (>60) 02/10/17 07:00 Random Glucose 145 mg/dL (74-106) H D 02/10/17 07:00 Calcium 8.9 mg/dL (8.5-10.1) 02/10/17 07:00 Total Bilirubin 0.4 mg/dL (0.2-1.0) D 02/10/17 07:00 AST 32 U/L (15-37) D 02/10/17 07:00 ALT 49 U/L (12-78) D 02/10/17 07:00 Alkaline Phosphatase 64 U/L (45-117) 02/10/17 07:00 Total Protein 7.6 g/dl (6.4-8.2) 02/10/17 07:00 Albumin 3.2 g/dl (3.4-5.0) L 02/10/17 07:00 Urine Color Ltyellow 02/09/17 15:30 Urine Appearance Clear 02/09/17 15:30 Urine pH 7.0 (5.0-8.0) 02/09/17 15:30 Ur Specific [place] 1.008 (1.001-1.035) 02/09/17 15:30 Urine Protein Negative (NEGATIVE) 02/09/17 15:30 Urine Glucose (UA) Negative (NEGATIVE) 02/09/17 15:30 Urine Ketones Negative (NEGATIVE) 02/09/17 15:30 Urine Blood Negative (NEGATIVE) 02/09/17 15:30 Urine Nitrite Negative (NEGATIVE) 02/09/17 15:30 Urine Bilirubin Negative (NEGATIVE) 02/09/17 15:30 Urine Urobilinogen Negative mg/dL (0.2-1.0) 02/09/17 15:30 Ur Leukocyte Esterase Negative (NEGATIVE) 02/09/17 15:30 [place] 1.1 MEQ/L (0.6-1.2) 02/10/17 07:00 RPR Titer Nonreactive (NONREACTIVE) 02/10/17 07:00 Assessment: 02/11/17 10:42 WITHDRAWAL SX Plan: CONTINUE DETOX
--- NOTE | 2017-02-11 12:58 | DS ---
[facility] Detox Discharge Summary Admission Date: 02/09/17 Discharge Date: 02/11/17 - History Present History: Alcohol Dependence, Cannabis Dependence, Cocaine Dependence Additional Comments: PT DECLINED TO CONTINUE WITH DETOX FOR PERSONAL REASONS. ALERT O X 3. NAD. PT WILL FOLLOW UP WITH HIS PRIMARY CARE NEEDED FOR MEDICAL MANAGEMENT OF COMORBID CONDITIONS. Pertinent Past History: AIDS HEP C - Physical Exam Results Vital Signs: Vital Signs Temperature 98.3 F 02/11/17 09:11 Pulse Rate 103 H 02/11/17 09:11 Respiratory Rate 18 02/11/17 09:11 Blood Pressure 125/73 02/11/17 09:11 O2 Sat by Pulse Oximetry (%) Pertinent Admission Physical Exam Findings: WITHDRAWAL SX - Treatment Hospital Course: Discharged Condition Good - Medication Discharge Medications: Ambulatory Orders Abacavir/Dolutegravir/Lamivudi [Triumeq Tablet] 1 tablet PO DAILY 02/09/17 Gabapentin 300 mg PO TID 02/09/17 [place] Carbonate [Eskalith -] 450 mg PO TID 02/09/17 - Diagnosis (1) AIDS (acquired immune deficiency syndrome) Current Visit: Yes Status: Chronic (2) Cannabis dependence Current Visit: Yes Status: Acute (3) Cocaine dependence, uncomplicated Current Visit: Yes Status: Acute (4) Hepatitis C Current Visit: No Status: Chronic Qualifiers: Viral hepatitis chronicity: chronic Hepatic coma status: without hepatic coma Qualified Code(s): B18.2 - Chronic viral hepatitis C (5) Nicotine dependence Current Visit: Yes Status: Acute Qualifiers: Nicotine product type: cigarettes Substance use status: uncomplicated Qualified Code(s): F17.210 - Nicotine dependence, cigarettes, uncomplicated (6) Alcohol dependence with uncomplicated withdrawal Current Visit: Yes Status: Acute - AMA Did Patient Leave Against Medical Advice: Yes (AMA)
[2017-02-11] MEDS ORDERED: chlordiazePOXIDE 5 MG CAPSULE PO SCH (17:00)
[2017-02-12] MEDS ORDERED: chlordiazePOXIDE HCL 10 MG CAPSULE PO SCH (17:00)
== END 2017-02-11 13:00 | disposition left against medical advice (07) | DRG 894 ==
LOC: YASAS 10:04 → Y3N 11:42
PROVIDERS: ADMIT Internal Medicine; ATTEND Internal Medicine
PROC: HZ2ZZZZ Detoxification Services for Substance Abuse Treatment (ICD-10-PCS; principal; 2017-02-09)
DX: F10.230 Alcohol dependence with withdrawal, uncomplicated (principal); F14.20 Cocaine dependence, uncomplicated; F19.282 Other psychoactive substance dependence with psychoactive substance-induced sleep disorder; F12.20 Cannabis dependence, uncomplicated; F17.210 Nicotine dependence, cigarettes, uncomplicated; F31.9 Bipolar disorder, unspecified; F19.24 Other psychoactive substance dependence with psychoactive substance-induced mood disorder; B18.2 Chronic viral hepatitis C; Z21 Asymptomatic human immunodeficiency virus [HIV] infection status
CPT/HCPCS: 36415; 80053; 80178; 81003; 85027; 86593; 93005; 93010

== ENCOUNTER 2018-04-02 18:18 | Inpatient (IN) | payer OTHER ==
[2018-04-02 18:43] VITALS: BMI 24.3
--- NOTE | 2018-04-02 19:52 | HP ---
CIWA Score - Admission Criteria [facility] Guidelines: Admission for Medically Managed Detox: Requires at least one of the followin. CIWA greater than 12 2. Seizures within the past 24 hours 3. Delirium tremens within the past 24 hours 4. Hallucinations within the past 24 hours 5. Acute intervention needed for co occurring medical disorder 6. Acute intervention needed for co occurring psychiatric disorder 7. Severe withdrawal that cannot be handled at a lower level of care (continued vomiting, continued diarrhea, abnormal vital signs) requiring intravenous medication and/or fluids 8. Admission ROS S - HPI Chief Complaint: REHAB SERVICES Allergies/Adverse Reactions: Allergies Allergy/AdvReac Type Severity Reaction Status Date / Time No Known Allergies Allergy Verified 02/09/17 10:56 History of Present Illness: 47 Y.O. MAN WITH AN EXTENSIVE HISTORY OF MARIJUANA DEPENDENCE IS HERE SEEKING REHAB SERVICES. DOES NOT HAVE A SIGNIFICANT PERIOD OF ABSTINENCE. CLIENT REPORTS HE WAS ADMITTED TO [facility] APPROXIMATELY 2 WEEKS AGO FOR SHILO, SEPTICEMIA AND GASTRITIS; HE DID NOT PROVIDE DISCHARGE DOCUMENTS. Exam Limitations: No Limitations - Ebola screening Have you traveled outside of the country in the last 21 days: No Have you had contact with anyone from an Ebola affected area: No Have you been sick,other than usual withdrawal symptoms: No Do you have a fever: No - Review of Systems Constitutional: Chills EENT: reports: No Symptoms Reported Respiratory: reports: Cough Cardiac: reports: Irregular Heart Rate GI: reports: No Symptoms Reported : reports: No Symptoms Reported Musculoskeletal: reports: Neck Pain Integumentary: reports: No Symptoms Reported Neuro: reports: Headache Endocrine: reports: No Symptoms Reported Hematology: reports: No Symptoms Reported Psychiatric: reports: Orientated x3 Other Systems: Reviewed and Negative Patient History - Patient Medical History Hx Anemia: No Hx Asthma: No Hx Chronic Obstructive Pulmonary Disease (COPD): No Hx Cancer: No Hx Cardiac Disorders: No Hx Congestive Heart Failure: No Hx Hypertension: No Hx Hypercholesterolemia: No Hx Pacemaker: No HX Cerebrovascular Accident: No Hx Seizures: No Hx Dementia: No Hx Diabetes: No Hx Gastrointestinal Disorders: Yes (GERD ) Hx Liver Disease: No Hx Genitourinary Disorders: No Hx Sexually Transmitted Disorders: No Hx Renal Disease (ESRD): Yes (SHILO ) Hx Thyroid Disease: No Hx Human Immunodeficiency Virus (HIV): Yes (TAKES TRIUMEQ ) Hx Hepatitis C: Yes (NOT TREATED ) Hx Depression: Yes Hx Suicide Attempt: No Hx Bipolar Disorder: Yes Hx Schizophrenia: No - Patient Surgical History Past Surgical History: No Hx Neurologic Surgery: No Hx Cataract Extraction: No Hx Cardiac Surgery: No Hx Lung Surgery: No Hx Breast Surgery: No Hx Breast Biopsy: No Hx Abdominal Surgery: No Hx Appendectomy: No Hx Cholecystectomy: No Hx Genitourinary Surgery: No Hx Orthopedic Surgery: No Anesthesia Reaction: No - PPD History Previous Implant?: Yes Documented Results: Negative w/proof Implanted On Prior R Admission?: No Date: 12/06/16 Results: 0 PPD to be Administered?: Yes - Reproductive History Patient is a Female of Child Bearing Age (11 -55 yrs old): No - Smoking Cessation Smoking history: Current every day smoker Have you smoked in the past 12 months: Yes Aproximately how many cigarettes per day: 6 Hx Chewing Tobacco Use: No Initiated information on smoking cessation: Yes 'Breaking Loose' booklet given: 04/02/18 - Substance & Tx. History Hx Alcohol Use: Yes Hx Substance Use: Yes Substance Use Type: Marijuana Hx Substance Use Treatment: Yes (01/2017 FOR DETOX ) - Substances Abused Marijuana/Hashish Route: Smoking Frequency: 3-6 times per week Amount used: $150 Age of first use: 14 Date of Last Use: 04/02/18 Family Disease History - Family Disease History Family Disease History: Diabetes: Grandparent (alcohol and cocaine addiction), Father, Mother, Heart Disease: Grandparent, Father, Mother, Other: Grandparent Admission Physical Exam BHS - Vital Signs Vital Signs: Vital Signs - 24 hr 04/02/18 18:41 Temperature 97.1 F L Pulse Rate 90 Respiratory 18 Rate Blood Pressure 140/90 - Physical General Appearance: Yes: Anxious HEENTM: Yes: Hearing grossly Normal, Normocephalic, Normal Voice Respiratory: Yes: Chest Non-Tender, Lungs Clear, Normal Breath Sounds, No Respiratory Distress, No Accessory Muscle Use Neck: Yes: Within Normal Limits, No masses,lesions,Nodules Breast: Yes: Breast Exam Deferred Cardiology: Yes: Regular Rhythm, Regular Rate Abdominal: Yes: Normal Bowel Sounds, Non Tender Genitourinary: Yes: Other (NO COMPLAINTS REPORTED) Back: Yes: Normal Inspection Musculoskeletal: Yes: full range of Motion, Gait Steady Extremities: Yes: Normal Capillary Refill, Normal Inspection Neurological: Yes: Fully Oriented, Alert, Normal Mood/Affect, Normal Response Integumentary: Yes: Other (SKIN PEELING OF THE FEET) Lymphatic: Yes: Within Normal Limits - Diagnostic (1) HIV (human immunodeficiency virus infection) Current Visit: Yes Status: Chronic (2) GERD (gastroesophageal reflux disease) Current Visit: Yes Status: Chronic (3) Cannabis dependence Current Visit: Yes Status: Chronic (4) Nicotine dependence Current Visit: Yes Status: Chronic Qualifiers: Nicotine product type: cigarettes Substance use status: uncomplicated Qualified Code(s): F17.210 - Nicotine dependence, cigarettes, uncomplicated (5) Hepatitis C Current Visit: Yes Status: Chronic Qualifiers: Viral hepatitis chronicity: chronic Hepatic coma status: without hepatic coma Qualified Code(s): B18.2 - Chronic viral hepatitis C (6) Skin abnormality Current Visit: Yes Status: Acute Comment: SKIN PEELING ON SOLES OF THE FEET Cleared for Admission [facility] - Detox or Rehab [facility] Level of Care: Observation Bed Detox Regimen/Protocol: Not Applicable Claeared for Rehab Admission: Yes [facility] Breath Alcohol Content Breath Alcohol Content: 0 Urine Drug Screen - Results Drug Screen Negative: No Urine Drug Screen Results: THC-Marijuana Inpatient Rehab Admission - Initial Determination Are CD services needed?: Yes Free of communicable disease: No Not in need of hospitalization: Yes - Rehab Admission Criteria Previous failed treatment: Yes Poor recovery environment: Yes Comorbidities: Yes Lacks judgement: Yes Patient is meeting Inpatient Rehab admission criteria:: Yes
[2018-04-02] MEDS ORDERED: MAG HYDROX/AL HYDROX/SIMETH 30 ML UNIT-DOSE CUP PO PRN (20:12)
[2018-04-02] MEDS ORDERED: MAGNESIUM HYDROX 2400MG/30ML ORAL SUSPENSION 30 ML CUP PO PRN (20:12)
[2018-04-02] MEDS ORDERED: MAGNESIUM CITRATE 300 ML BOTTLE PO PRN (20:12)
[2018-04-02] MEDS ORDERED: LOPERAMIDE HCL 2 MG CAPSULE PO PRN (20:12)
[2018-04-02] MEDS ORDERED: guaiFENesin/D-METHORPHAN HB 10 ML UNIT-DOSE CUPS PO PRN (20:12)
[2018-04-02] MEDS ORDERED: NICOTINE POLACRILEX 2 MG GUM BC PRN (20:12)
[2018-04-02] MEDS ORDERED: MELATONIN 5 MG TABLETS PO PRN (22:00)
[2018-04-02] MEDS: hydrOXYzine PAMOATE 50 MG CAPSULE (FP) PO PRN (23:04)
[2018-04-02] MEDS: THIAMINE HCL 100 MG TABLET (FP) PO SCH (23:05)
[2018-04-02] MEDS: IBUPROFEN 400 MG TABLET (FP) PO PRN (23:05)
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
[2018-04-03] MEDS: hydrOXYzine PAMOATE 50 MG CAPSULE (FP) PO PRN ×2 (10:01→21:37)
[2018-04-03] MEDS: NICOTINE 14 MG/24 HOURS TOPICAL PATCH TD SCH (10:01)
[2018-04-03] MEDS: PANTOPRAZOLE 40 MG TABLET (FP) PO SCH (10:01)
[2018-04-03] MEDS: PRENATAL VITAMINS W/ FOLIC ACID TABLET (FP) PO SCH (10:01)
[2018-04-03 10:21] LABS: URINE APPEARANCE CLEAR; URINE BILIRUBIN NEGATIVE (<2.0 mg/dL); URINE COLOR YELLOW; URINE GLUCOSE (UA) NEGATIVE (NEGATIVE); URINE KETONE NEGATIVE (NEGATIVE); URINE LEUK ESTERASE NEGATIVE (NEGATIVE); URINE NITRITE NEGATIVE (NEGATIVE); URINE PROTEIN 1+ (NEGATIVE)
[2018-04-03 10:39] LABS: EPI CELLS RARE /HPF (FEW); URINE MUCUS MODERATE
[2018-04-03] MEDS: PATIENT'S OWN MEDICATION (NON-FORMULARY) (Abacavir/Dolutegravir/Lamivudi [Triumeq 600-50-3 PO SCH (11:00)
[2018-04-03 11:02] LABS: HEMATOCRIT 38.2 % (35.4-49); HEMOGLOBIN 13.3 GM/dL (11.7-16.9); MCH 34.5 pg (25.7-33.7); MCHC 34.9 g/dl (32.0-35.9); MEAN CELL VOLUME 98.7 fl (80-96); MEAN PLT VOLUME 9.9 fl (7.5-11.1); PLATELET COUNT 240 K/MM3 (134-434); RBC 3.87 M/mm3 (4.00-5.60); RDW 14.9 % (11.9-15.9); WHITE BLOOD COUNT 7.4 K/mm3 (4.0-10.0)
[2018-04-03 11:10] LABS: ALBUMIN 3.1 g/dl (3.4-5.0); ALK PHOS 73 U/L (45-117); ANION GAP 10 MMOL/L (8-16); BILIRUBIN,TOTAL 0.6 mg/dL (0.2-1); BLOOD UREA NITROGEN 24 mg/dL (7-18); CALCIUM 8.2 mg/dL (8.5-10.1); CHLORIDE 109 mmol/L (98-107); CO2 23 mmol/L (21-32); CREATININE 1.1 mg/dL (0.55-1.3); GLUCOSE,RANDOM 102 mg/dL (74-106); POTASSIUM 3.6 mmol/L (3.5-5.1); SGOT/AST 24 U/L (15-37); SGPT/ALT 22 U/L (13-61); SODIUM 141 mmol/L (136-145); TOT PROT 6.3 g/dl (6.4-8.2)
[2018-04-03] MEDS ORDERED: PT OWN MED DRAWER 7, Y5N ONE (12:00)
[2018-04-03] MEDS: GABAPENTIN 300 MG CAPSULE (FP) PO SCH ×2 (16:13→21:37)
[2018-04-03] MEDS: LITHIUM CARBONATE 450 MG TABLET.ER PO SCH ×2 (16:22→21:37)
[2018-04-03] MEDS: THIAMINE HCL 100 MG TABLET (FP) PO SCH (21:37)
[2018-04-03] MEDS: MELATONIN 5 MG TABLETS PO PRN (21:37)
[2018-04-04] MEDS: LITHIUM CARBONATE 450 MG TABLET.ER PO SCH ×3 (06:08→21:31)
[2018-04-04] MEDS: GABAPENTIN 300 MG CAPSULE (FP) PO SCH ×3 (06:08→21:31)
[2018-04-04] MEDS: PRENATAL VITAMINS W/ FOLIC ACID TABLET (FP) PO SCH (09:43)
[2018-04-04] MEDS: PANTOPRAZOLE 40 MG TABLET (FP) PO SCH (09:43)
[2018-04-04] MEDS: NICOTINE 14 MG/24 HOURS TOPICAL PATCH TD SCH (09:43)
[2018-04-04] MEDS: PATIENT'S OWN MEDICATION (NON-FORMULARY) (Abacavir/Dolutegravir/Lamivudi [Triumeq 600-50-3 PO SCH (09:45)
[2018-04-04] MEDS ORDERED: PT OWN MED DRAWER 7, Y5N ONE (09:46)
[2018-04-04] MEDS: hydrOXYzine PAMOATE 50 MG CAPSULE (FP) PO PRN (21:31)
[2018-04-04] MEDS: MELATONIN 5 MG TABLETS PO PRN (21:31)
[2018-04-04] MEDS: THIAMINE HCL 100 MG TABLET (FP) PO SCH (21:31)
[2018-04-05] MEDS: GABAPENTIN 300 MG CAPSULE (FP) PO SCH ×3 (06:13→21:23)
[2018-04-05] MEDS: LITHIUM CARBONATE 450 MG TABLET.ER PO SCH ×3 (07:25→21:24)
[2018-04-05] MEDS ORDERED: PT OWN MED DRAWER 7, Y5N ONE (08:53)
[2018-04-05] MEDS: PANTOPRAZOLE 40 MG TABLET (FP) PO SCH (09:59)
[2018-04-05] MEDS: PATIENT'S OWN MEDICATION (NON-FORMULARY) (Abacavir/Dolutegravir/Lamivudi [Triumeq 600-50-3 PO SCH (09:59)
[2018-04-05] MEDS: NICOTINE 14 MG/24 HOURS TOPICAL PATCH TD SCH (09:59)
[2018-04-05] MEDS: PRENATAL VITAMINS W/ FOLIC ACID TABLET (FP) PO SCH (09:59)
[2018-04-05] MEDS: MELATONIN 5 MG TABLETS PO PRN (21:23)
[2018-04-05] MEDS: THIAMINE HCL 100 MG TABLET (FP) PO SCH (21:23)
[2018-04-05] MEDS: hydrOXYzine PAMOATE 50 MG CAPSULE (FP) PO PRN (21:23)
[2018-04-06] MEDS: LITHIUM CARBONATE 450 MG TABLET.ER PO SCH ×3 (06:13→23:04)
[2018-04-06] MEDS: GABAPENTIN 300 MG CAPSULE (FP) PO SCH ×3 (06:13→21:18)
[2018-04-06] MEDS: PRENATAL VITAMINS W/ FOLIC ACID TABLET (FP) PO SCH (10:00)
[2018-04-06] MEDS: PATIENT'S OWN MEDICATION (NON-FORMULARY) (Abacavir/Dolutegravir/Lamivudi [Triumeq 600-50-3 PO SCH (10:00)
[2018-04-06] MEDS: NICOTINE 14 MG/24 HOURS TOPICAL PATCH TD SCH (10:00)
[2018-04-06] MEDS: PANTOPRAZOLE 40 MG TABLET (FP) PO SCH (10:00)
[2018-04-06] MEDS: THIAMINE HCL 100 MG TABLET (FP) PO SCH (21:17)
[2018-04-06] MEDS: hydrOXYzine PAMOATE 50 MG CAPSULE (FP) PO PRN (21:18)
[2018-04-06] MEDS: P-EPHED 60MG/TRIPROLIDI 2.5MG TABLET PO PRN (21:18)
[2018-04-06] MEDS: SUVOREXANT 10 MG TABLET PO PRN (21:20)
[2018-04-06] MEDS ORDERED: PT OWN MED DRAWER 7, Y5N ONE (23:04)
[2018-04-07] MEDS: LITHIUM CARBONATE 450 MG TABLET.ER PO SCH ×3 (06:14→21:18)
[2018-04-07] MEDS: GABAPENTIN 300 MG CAPSULE (FP) PO SCH ×3 (06:14→21:18)
--- NOTE | 2018-04-07 07:05 | PN ---
S Progress Note Note: Patient is not responding to Melatonin 10 mg po HS for insomnia. He requests to be on Belsomra. Belsomra 10 mg po HS prn ordered
[2018-04-07] MEDS: PANTOPRAZOLE 40 MG TABLET (FP) PO SCH (09:43)
[2018-04-07] MEDS: NICOTINE 14 MG/24 HOURS TOPICAL PATCH TD SCH (09:43)
[2018-04-07] MEDS: PATIENT'S OWN MEDICATION (NON-FORMULARY) (Abacavir/Dolutegravir/Lamivudi [Triumeq 600-50-3 PO SCH (09:43)
[2018-04-07] MEDS: PRENATAL VITAMINS W/ FOLIC ACID TABLET (FP) PO SCH (09:43)
[2018-04-07] MEDS ORDERED: PT OWN MED DRAWER 7, Y5N ONE ×3 (13:04→21:02)
[2018-04-07] MEDS: IBUPROFEN 400 MG TABLET (FP) PO PRN (15:34)
[2018-04-07] MEDS: THIAMINE HCL 100 MG TABLET (FP) PO SCH (21:18)
[2018-04-07] MEDS: MELATONIN 5 MG TABLETS PO PRN (21:18)
[2018-04-07] MEDS: hydrOXYzine PAMOATE 50 MG CAPSULE (FP) PO PRN (21:18)
[2018-04-08] MEDS: GABAPENTIN 300 MG CAPSULE (FP) PO SCH ×3 (06:33→21:33)
[2018-04-08] MEDS: LITHIUM CARBONATE 450 MG TABLET.ER PO SCH ×3 (06:38→21:34)
[2018-04-08] MEDS ORDERED: PT OWN MED DRAWER 7, Y5N ONE (09:11)
[2018-04-08] MEDS: PRENATAL VITAMINS W/ FOLIC ACID TABLET (FP) PO SCH (10:25)
[2018-04-08] MEDS: PANTOPRAZOLE 40 MG TABLET (FP) PO SCH (10:25)
[2018-04-08] MEDS: PATIENT'S OWN MEDICATION (NON-FORMULARY) (Abacavir/Dolutegravir/Lamivudi [Triumeq 600-50-3 PO SCH (10:25)
[2018-04-08] MEDS: NICOTINE 14 MG/24 HOURS TOPICAL PATCH TD SCH (10:25)
[2018-04-08] MEDS: MELATONIN 5 MG TABLETS PO PRN (21:33)
[2018-04-08] MEDS: SUVOREXANT 10 MG TABLET PO PRN (21:33)
[2018-04-08] MEDS: hydrOXYzine PAMOATE 50 MG CAPSULE (FP) PO PRN (21:33)
[2018-04-08] MEDS: THIAMINE HCL 100 MG TABLET (FP) PO SCH (21:34)
[2018-04-09] MEDS: GABAPENTIN 300 MG CAPSULE (FP) PO SCH ×3 (06:02→21:14)
[2018-04-09] MEDS: LITHIUM CARBONATE 450 MG TABLET.ER PO SCH ×3 (06:02→21:14)
[2018-04-09] MEDS: PRENATAL VITAMINS W/ FOLIC ACID TABLET (FP) PO SCH (09:42)
[2018-04-09] MEDS: NICOTINE 14 MG/24 HOURS TOPICAL PATCH TD SCH (09:42)
[2018-04-09] MEDS: PANTOPRAZOLE 40 MG TABLET (FP) PO SCH (09:42)
[2018-04-09] MEDS: PATIENT'S OWN MEDICATION (NON-FORMULARY) (Abacavir/Dolutegravir/Lamivudi [Triumeq 600-50-3 PO SCH (09:42)
[2018-04-09 11:09] LABS: ALBUMIN 3.6 g/dl (3.4-5.0); ALK PHOS 76 U/L (45-117); ANION GAP 7 MMOL/L (8-16); BILIRUBIN,TOTAL 0.6 mg/dL (0.2-1); BLOOD UREA NITROGEN 19 mg/dL (7-18); CALCIUM 8.9 mg/dL (8.5-10.1); CHLORIDE 101 mmol/L (98-107); CO2 30 mmol/L (21-32); CREATININE 1.1 mg/dL (0.55-1.3); GLUCOSE,RANDOM 89 mg/dL (74-106); POTASSIUM 4.9 mmol/L (3.5-5.1); SGOT/AST 39 U/L (15-37); SGPT/ALT 50 U/L (13-61); SODIUM 138 mmol/L (136-145)
[2018-04-09] MEDS: ACETAMINOPHEN 325 MG TABLET (FP) PO PRN ×2 (15:59→20:23)
[2018-04-09] MEDS: MELATONIN 5 MG TABLETS PO PRN (21:14)
[2018-04-09] MEDS: SUVOREXANT 10 MG TABLET PO PRN (21:14)
[2018-04-09] MEDS: THIAMINE HCL 100 MG TABLET (FP) PO SCH (21:14)
[2018-04-09] MEDS: hydrOXYzine PAMOATE 50 MG CAPSULE (FP) PO PRN (21:14)
[2018-04-10] MEDS: GABAPENTIN 300 MG CAPSULE (FP) PO SCH ×3 (06:26→21:39)
[2018-04-10] MEDS: LITHIUM CARBONATE 450 MG TABLET.ER PO SCH ×3 (06:26→21:39)
[2018-04-10] MEDS: NICOTINE 14 MG/24 HOURS TOPICAL PATCH TD SCH (10:10)
[2018-04-10] MEDS: PRENATAL VITAMINS W/ FOLIC ACID TABLET (FP) PO SCH (10:10)
[2018-04-10] MEDS: PATIENT'S OWN MEDICATION (NON-FORMULARY) (Abacavir/Dolutegravir/Lamivudi [Triumeq 600-50-3 PO SCH (10:11)
[2018-04-10] MEDS: PANTOPRAZOLE 40 MG TABLET (FP) PO SCH (10:12)
[2018-04-10] MEDS ORDERED: PT OWN MED DRAWER 7, Y5N ONE (10:12)
[2018-04-10] MEDS: IBUPROFEN 400 MG TABLET (FP) PO PRN (21:38)
[2018-04-10] MEDS: hydrOXYzine PAMOATE 50 MG CAPSULE (FP) PO PRN (21:39)
[2018-04-10] MEDS: SUVOREXANT 10 MG TABLET PO PRN (21:39)
[2018-04-10] MEDS: MELATONIN 5 MG TABLETS PO PRN (21:39)
[2018-04-10] MEDS: THIAMINE HCL 100 MG TABLET (FP) PO SCH (21:39)
[2018-04-11] MEDS: GABAPENTIN 300 MG CAPSULE (FP) PO SCH ×3 (06:14→21:21)
[2018-04-11] MEDS: LITHIUM CARBONATE 450 MG TABLET.ER PO SCH ×3 (06:14→21:21)
[2018-04-11] MEDS ORDERED: PT OWN MED DRAWER 7, Y5N ONE (08:56)
[2018-04-11] MEDS: NICOTINE 14 MG/24 HOURS TOPICAL PATCH TD SCH (09:18)
[2018-04-11] MEDS: PATIENT'S OWN MEDICATION (NON-FORMULARY) (Abacavir/Dolutegravir/Lamivudi [Triumeq 600-50-3 PO SCH (09:19)
[2018-04-11] MEDS: PRENATAL VITAMINS W/ FOLIC ACID TABLET (FP) PO SCH (09:19)
[2018-04-11] MEDS: PANTOPRAZOLE 40 MG TABLET (FP) PO SCH (09:19)
[2018-04-11] MEDS: ACETAMINOPHEN 325 MG TABLET (FP) PO PRN (17:32)
[2018-04-11] MEDS: THIAMINE HCL 100 MG TABLET (FP) PO SCH (21:21)
[2018-04-11] MEDS: SUVOREXANT 10 MG TABLET PO PRN (21:21)
[2018-04-11] MEDS: MELATONIN 5 MG TABLETS PO PRN (21:23)
[2018-04-12] MEDS ORDERED: PT OWN MED DRAWER 7, Y5N ONE (02:30)
[2018-04-12] MEDS: GABAPENTIN 300 MG CAPSULE (FP) PO SCH ×3 (06:16→21:29)
[2018-04-12] MEDS: LITHIUM CARBONATE 450 MG TABLET.ER PO SCH ×3 (06:16→21:28)
[2018-04-12] MEDS: PANTOPRAZOLE 40 MG TABLET (FP) PO SCH (09:32)
[2018-04-12] MEDS: PRENATAL VITAMINS W/ FOLIC ACID TABLET (FP) PO SCH (09:32)
[2018-04-12] MEDS: PATIENT'S OWN MEDICATION (NON-FORMULARY) (Abacavir/Dolutegravir/Lamivudi [Triumeq 600-50-3 PO SCH (09:32)
[2018-04-12] MEDS: NICOTINE 14 MG/24 HOURS TOPICAL PATCH TD SCH (09:32)
[2018-04-12] MEDS: THIAMINE HCL 100 MG TABLET (FP) PO SCH (21:29)
[2018-04-12] MEDS: MELATONIN 5 MG TABLETS PO PRN (21:31)
[2018-04-12] MEDS: SUVOREXANT 10 MG TABLET PO PRN (21:31)
[2018-04-13] MEDS: LITHIUM CARBONATE 450 MG TABLET.ER PO SCH ×3 (06:02→21:11)
[2018-04-13] MEDS: GABAPENTIN 300 MG CAPSULE (FP) PO SCH ×3 (06:03→21:10)
[2018-04-13] MEDS: PANTOPRAZOLE 40 MG TABLET (FP) PO SCH (10:45)
[2018-04-13] MEDS: PRENATAL VITAMINS W/ FOLIC ACID TABLET (FP) PO SCH (10:45)
[2018-04-13] MEDS: PATIENT'S OWN MEDICATION (NON-FORMULARY) (Abacavir/Dolutegravir/Lamivudi [Triumeq 600-50-3 PO SCH (10:45)
[2018-04-13] MEDS: NICOTINE 14 MG/24 HOURS TOPICAL PATCH TD SCH (10:45)
[2018-04-13] MEDS: THIAMINE HCL 100 MG TABLET (FP) PO SCH (21:10)
[2018-04-13] MEDS: MELATONIN 5 MG TABLETS PO PRN (21:12)
[2018-04-13] MEDS: SUVOREXANT 10 MG TABLET PO PRN (21:15)
[2018-04-13] MEDS: P-EPHED 60MG/TRIPROLIDI 2.5MG TABLET PO PRN (21:16)
[2018-04-14] MEDS: GABAPENTIN 300 MG CAPSULE (FP) PO SCH ×3 (06:11→21:12)
[2018-04-14] MEDS: LITHIUM CARBONATE 450 MG TABLET.ER PO SCH ×3 (06:11→21:12)
[2018-04-14] MEDS: PRENATAL VITAMINS W/ FOLIC ACID TABLET (FP) PO SCH (10:06)
[2018-04-14] MEDS: NICOTINE 14 MG/24 HOURS TOPICAL PATCH TD SCH (10:06)
[2018-04-14] MEDS: PANTOPRAZOLE 40 MG TABLET (FP) PO SCH (10:06)
[2018-04-14] MEDS: PATIENT'S OWN MEDICATION (NON-FORMULARY) (Abacavir/Dolutegravir/Lamivudi [Triumeq 600-50-3 PO SCH (10:06)
[2018-04-14] MEDS: MELATONIN 5 MG TABLETS PO PRN (21:12)
[2018-04-14] MEDS: THIAMINE HCL 100 MG TABLET (FP) PO SCH (21:12)
[2018-04-14] MEDS: SUVOREXANT 10 MG TABLET PO PRN (21:12)
[2018-04-14] MEDS: hydrOXYzine PAMOATE 50 MG CAPSULE (FP) PO PRN (21:12)
[2018-04-15] MEDS: LITHIUM CARBONATE 450 MG TABLET.ER PO SCH ×3 (06:24→21:25)
[2018-04-15] MEDS: GABAPENTIN 300 MG CAPSULE (FP) PO SCH ×3 (06:24→21:25)
[2018-04-15] MEDS: PANTOPRAZOLE 40 MG TABLET (FP) PO SCH (09:50)
[2018-04-15] MEDS: NICOTINE 14 MG/24 HOURS TOPICAL PATCH TD SCH (09:50)
[2018-04-15] MEDS: PRENATAL VITAMINS W/ FOLIC ACID TABLET (FP) PO SCH (09:50)
[2018-04-15] MEDS: PATIENT'S OWN MEDICATION (NON-FORMULARY) (Abacavir/Dolutegravir/Lamivudi [Triumeq 600-50-3 PO SCH (09:51)
[2018-04-15] MEDS: ACETAMINOPHEN 325 MG TABLET (FP) PO PRN (11:09)
[2018-04-15] MEDS: SUVOREXANT 10 MG TABLET PO PRN (21:25)
[2018-04-15] MEDS: hydrOXYzine PAMOATE 50 MG CAPSULE (FP) PO PRN (21:25)
[2018-04-15] MEDS: MELATONIN 5 MG TABLETS PO PRN (21:25)
[2018-04-15] MEDS: THIAMINE HCL 100 MG TABLET (FP) PO SCH (21:25)
[2018-04-16] MEDS ORDERED: PT OWN MED DRAWER 7, Y5N ONE ×2 (02:42→09:31)
[2018-04-16] MEDS: ACETAMINOPHEN 325 MG TABLET (FP) PO PRN ×2 (03:10→13:58)
[2018-04-16] MEDS: GABAPENTIN 300 MG CAPSULE (FP) PO SCH ×3 (06:26→21:08)
[2018-04-16] MEDS: LITHIUM CARBONATE 450 MG TABLET.ER PO SCH ×3 (06:26→21:08)
[2018-04-16] MEDS: PANTOPRAZOLE 40 MG TABLET (FP) PO SCH (10:22)
[2018-04-16] MEDS: PRENATAL VITAMINS W/ FOLIC ACID TABLET (FP) PO SCH (10:22)
[2018-04-16] MEDS: PATIENT'S OWN MEDICATION (NON-FORMULARY) (Abacavir/Dolutegravir/Lamivudi [Triumeq 600-50-3 PO SCH (10:23)
[2018-04-16] MEDS: NICOTINE 14 MG/24 HOURS TOPICAL PATCH TD SCH (10:24)
[2018-04-16] MEDS: THIAMINE HCL 100 MG TABLET (FP) PO SCH (21:07)
[2018-04-16] MEDS: SUVOREXANT 10 MG TABLET PO PRN (21:08)
[2018-04-17] MEDS ORDERED: PT OWN MED DRAWER 7, Y5N ONE (03:02)
[2018-04-17] MEDS: LITHIUM CARBONATE 450 MG TABLET.ER PO SCH ×3 (06:19→21:12)
[2018-04-17] MEDS: GABAPENTIN 300 MG CAPSULE (FP) PO SCH ×3 (06:19→21:12)
[2018-04-17] MEDS: PRENATAL VITAMINS W/ FOLIC ACID TABLET (FP) PO SCH (10:13)
[2018-04-17] MEDS: PATIENT'S OWN MEDICATION (NON-FORMULARY) (Abacavir/Dolutegravir/Lamivudi [Triumeq 600-50-3 PO SCH (10:13)
[2018-04-17] MEDS: NICOTINE 14 MG/24 HOURS TOPICAL PATCH TD SCH (10:13)
[2018-04-17] MEDS: PANTOPRAZOLE 40 MG TABLET (FP) PO SCH (10:13)
[2018-04-17] MEDS: THIAMINE HCL 100 MG TABLET (FP) PO SCH (21:12)
[2018-04-17] MEDS: SUVOREXANT 10 MG TABLET PO PRN (21:14)
[2018-04-18] MEDS: GABAPENTIN 300 MG CAPSULE (FP) PO SCH ×3 (05:48→21:16)
[2018-04-18] MEDS: LITHIUM CARBONATE 450 MG TABLET.ER PO SCH ×3 (05:48→21:16)
[2018-04-18] MEDS: PANTOPRAZOLE 40 MG TABLET (FP) PO SCH (09:54)
[2018-04-18] MEDS: PRENATAL VITAMINS W/ FOLIC ACID TABLET (FP) PO SCH (09:54)
[2018-04-18] MEDS: NICOTINE 14 MG/24 HOURS TOPICAL PATCH TD SCH (09:54)
[2018-04-18] MEDS: PATIENT'S OWN MEDICATION (NON-FORMULARY) (Abacavir/Dolutegravir/Lamivudi [Triumeq 600-50-3 PO SCH (09:55)
[2018-04-18] MEDS ORDERED: PT OWN MED DRAWER 7, Y5N ONE (09:55)
--- NOTE | 2018-04-18 14:23 | PN ---
[facility] Progress Note Note: Psychiatric nurse practitioner note: Belsomra 10mg renewed X3 days. Verbal consent given.
[2018-04-18] MEDS: MELATONIN 5 MG TABLETS PO PRN (21:16)
[2018-04-18] MEDS: THIAMINE HCL 100 MG TABLET (FP) PO SCH (21:16)
[2018-04-18] MEDS: IBUPROFEN 400 MG TABLET (FP) PO PRN (21:16)
[2018-04-18] MEDS: SUVOREXANT 10 MG TABLET PO PRN (21:17)
[2018-04-19] MEDS: MENTHOL/PHENOL 1 EACH UD MM PRN ×2 (03:56→22:37)
[2018-04-19] MEDS: LITHIUM CARBONATE 450 MG TABLET.ER PO SCH ×3 (06:03→21:05)
[2018-04-19] MEDS: GABAPENTIN 300 MG CAPSULE (FP) PO SCH ×3 (06:03→21:05)
[2018-04-19] MEDS: PRENATAL VITAMINS W/ FOLIC ACID TABLET (FP) PO SCH (09:48)
[2018-04-19] MEDS: PANTOPRAZOLE 40 MG TABLET (FP) PO SCH (09:48)
[2018-04-19] MEDS: NICOTINE 14 MG/24 HOURS TOPICAL PATCH TD SCH (09:48)
[2018-04-19] MEDS: PATIENT'S OWN MEDICATION (NON-FORMULARY) (Abacavir/Dolutegravir/Lamivudi [Triumeq 600-50-3 PO SCH (09:48)
[2018-04-19] MEDS: ACETAMINOPHEN 325 MG TABLET (FP) PO PRN (14:28)
[2018-04-19] MEDS: SUVOREXANT 10 MG TABLET PO PRN (21:05)
[2018-04-19] MEDS: MELATONIN 5 MG TABLETS PO PRN (21:05)
[2018-04-19] MEDS: THIAMINE HCL 100 MG TABLET (FP) PO SCH (21:05)
[2018-04-19] MEDS: P-EPHED 60MG/TRIPROLIDI 2.5MG TABLET PO PRN (22:38)
[2018-04-20] MEDS: LITHIUM CARBONATE 450 MG TABLET.ER PO SCH ×3 (06:12→21:13)
[2018-04-20] MEDS: GABAPENTIN 300 MG CAPSULE (FP) PO SCH ×3 (06:12→21:13)
[2018-04-20] MEDS: NICOTINE 14 MG/24 HOURS TOPICAL PATCH TD SCH (10:10)
[2018-04-20] MEDS: PRENATAL VITAMINS W/ FOLIC ACID TABLET (FP) PO SCH (10:10)
[2018-04-20] MEDS: PANTOPRAZOLE 40 MG TABLET (FP) PO SCH (10:11)
[2018-04-20] MEDS: PATIENT'S OWN MEDICATION (NON-FORMULARY) (Abacavir/Dolutegravir/Lamivudi [Triumeq 600-50-3 PO SCH (10:11)
[2018-04-20] MEDS: MELATONIN 5 MG TABLETS PO PRN (21:12)
[2018-04-20] MEDS: MENTHOL/PHENOL 1 EACH UD MM PRN (21:12)
[2018-04-20] MEDS: THIAMINE HCL 100 MG TABLET (FP) PO SCH (21:13)
[2018-04-20] MEDS: SUVOREXANT 10 MG TABLET PO PRN (21:13)
--- NOTE | 2018-04-21 06:11 | PN ---
Psychiatric Progress Note Vital Signs: Vital Signs Period Temp Pulse Resp BP Sys/[place] Pulse Ox Last 24 Hr 97.5 F 77 18-18 140/86 Date of Session: 04/21/18 Chief Complaint:: Discharge Note HPI: Patient addressing Cannabis Dependence comorbid with Nicotine Dependence and Bipolar Disorder ROS: GERD, HIV/AIDS, Hep C were medically managed Current Medications: Active Medications Generic Name Dose Route Start Last Admin Trade Name Freq PRN Reason Stop Dose Admin Acetaminophen 650 mg 04/02/18 20:12 04/19/18 14:28 Tylenol - PO 650 mg Q4H PRN Administration FEVER Al Hydroxide/Mg Hydroxide 30 ml 04/02/18 20:12 Mylanta Oral Suspension - PO Q6H PRN DYSPEPSIA Eucalyptus/Menthol/Phenol/Sorbitol 1 each 04/02/18 20:12 04/20/18 21:12 Cepastat Lozenge - MM 1 each Q4H PRN Administration SORE THROAT Gabapentin 300 mg 04/03/18 15:05 04/20/18 21:13 Neurontin - PO 300 mg TID [place] Administration Guaifenesin 10 ml 04/02/18 20:12 04/19/18 03:54 Robitussin Dm - PO 10 ml Q6H PRN Administration COUGH Hydroxyzine Pamoate 50 mg 04/02/18 20:12 04/15/18 21:25 Vistaril - PO 50 mg Q4H PRN Administration AGITATION Ibuprofen 400 mg 04/02/18 20:12 04/18/18 21:16 Motrin - PO 400 mg Q6H PRN Administration Pain level 4-6 [place] Carbonate 450 mg 04/03/18 15:10 04/20/18 21:13 Eskalith - PO 450 mg TID [place] Administration Loperamide HCl 4 mg 04/02/18 20:12 Imodium - PO Q6H PRN DIARRHEA Magnesium Citrate 300 ml 04/02/18 20:12 Citroma - PO Q48H PRN CONSTIPATION Magnesium Hydroxide 30 ml 04/02/18 20:12 Milk Of Magnesia - PO DAILY PRN CONSTIPATION Melatonin 10 mg 04/03/18 13:44 04/20/18 21:12 Melatonin PO 10 mg HS PRN Administration INSOMNIA Nicotine 14 mg 04/03/18 10:00 04/20/18 10:10 Nicoderm Patch - TD 14 mg DAILY [place] Administration Nicotine Polacrilex 2 mg 04/02/18 20:12 Nicorette Gum - BC Q2H PRN NICOTINE REPLACEMENT RX Non-Formulary Medication 1 tablet 04/03/18 10:00 04/20/18 10:11 Abacavir/Dolutegravir/Lamivudi [Triumeq 600-50-300 Mg Tablet] PO 1 tablet DAILY [place] Administration Pantoprazole Sodium 40 mg 04/03/18 10:00 04/20/18 10:11 Protonix - PO 40 mg DAILY [place] Administration Multivit/Folic Acid/Iron 1 tab 04/03/18 10:00 04/20/18 10:10 Vitamins (Sjr) - PO 1 tab DAILY [place] Administration Pseudoephedrine/Triprolidine 1 combo 04/02/18 20:12 04/19/18 22:38 Actifed - PO 1 combo TID PRN Administration NASAL CONGESTION Suvorexant 10 mg 04/18/18 22:00 04/20/18 21:13 Belsomra PO 10 mg HS PRN Administration INSOMNIA Suvorexant 10 mg 04/21/18 22:00 Belsomra PO HS PRN INSOMNIA Thiamine HCl 100 mg 04/02/18 22:00 04/20/18 21:13 Vitamin B1 - PO 100 mg HS [place] Administration Current Side Effect: No Lab tests ordered: Yes Lab tests reviewed: Yes Provider note:: Patient has completed this program today. He has met his treatment goals and will continue to address his issues in director of medical services residential treatment at [facility] at [address] [place] [address]. Told health technical writer that from his participation in this program, he has learned the importance of making meetings and getting a sponsor. He responded well to [place] 450 mg po TID, Gabapentin 300 mg po TID. Scripts for these medications are electronically transmitted to [facility] at [address] [place] [address]. He is stable for discharge today Total face to face time:: 35 Mental Status Exam - Mental Status Exam Alert and Oriented to: Time, Place, Person Cognitive Function: Fair Patient Appearance: Well Groomed Mood: Hopeful, Euthymic Affect: Appropriate Patient Behavior: Cooperative Speech Pattern: Clear Voice Loudness: Normal Thought Process: Intact, Goal Oriented Thought Disorder: Not Present Hallucinations: Denies Suicidal Ideation: Denies Homicidal Ideation: Denies Insight/Judgement: Fair Sleep: Fair Appetite: Good Muscle strength/Tone: Normal Gait/Station: Normal Psychiatric Treatment Plan - Problem List (1) Cannabis dependence Current Visit: Yes (2) Nicotine dependence Current Visit: Yes Qualifiers: Nicotine product type: cigarettes Substance use status: uncomplicated Qualified Code(s): F17.210 - Nicotine dependence, cigarettes, uncomplicated (3) Bipolar disorder Current Visit: No (4) GERD (gastroesophageal reflux disease) Current Visit: Yes (5) HIV (human immunodeficiency virus infection) Current Visit: Yes (6) AIDS (acquired immune deficiency syndrome) Current Visit: No (7) Hepatitis C Current Visit: Yes Qualifiers: Viral hepatitis chronicity: chronic Hepatic coma status: without hepatic coma Qualified Code(s): B18.2 - Chronic viral hepatitis C Initial treatment plan: Patient is discharged today and referred to [facility] for longterm residential treatment
[2018-04-21] MEDS: LITHIUM CARBONATE 450 MG TABLET.ER PO SCH (06:20)
[2018-04-21] MEDS: GABAPENTIN 300 MG CAPSULE (FP) PO SCH (06:20)
[2018-04-21 07:25] VITALS: BP 135/74; PULSE 102; TEMP 98.6
[2018-04-21] MEDS ORDERED: PT OWN MED DRAWER 7, Y5N ONE (07:30)
[2018-04-21] MEDS: MENTHOL/PHENOL 1 EACH UD MM PRN (07:32)
--- NOTE | 2018-04-21 09:54 | PN ---
[facility] Progress Note Note: PATIENT COMPLETED REHAB TODAY FOR THC AND NICOTINE DEPENDENCE. HAS H/O HIV AND BIPOLAR DISORDER. PATIENT SCHEDULED FOR [facility] AND AT [facility] IN [place], [place]. HIV MEDICATION SENT TO PREFERRED PHARMACY. Vital Signs Temperature 98.6 F 04/21/18 07:21 Pulse Rate 102 H 04/21/18 07:21 Respiratory Rate 20 04/21/18 07:21 Blood Pressure 135/74 04/21/18 07:21 O2 Sat by Pulse Oximetry (%)
[2018-04-21] MEDS ORDERED: SUVOREXANT 10 MG TABLET PO PRN (22:00)
== END 2018-04-21 07:40 | disposition home or self-care (01) | DRG 895 ==
LOC: YASAS 18:18 → Y3W 19:31 → UNDODISIN 04-15 13:15
PROVIDERS: ADMIT Psychiatry & Neurology Psychiatry; ATTEND Psychiatry & Neurology Psychiatry
PROC: HZ42ZZZ Group Counseling for Substance Abuse Treatment, Cognitive-Behavioral (ICD-10-PCS; principal; 2018-04-02)
DX: F12.20 Cannabis dependence, uncomplicated (principal); F17.210 Nicotine dependence, cigarettes, uncomplicated; Z21 Asymptomatic human immunodeficiency virus [HIV] infection status; K21.9 Gastro-esophageal reflux disease without esophagitis; B18.2 Chronic viral hepatitis C; L98.9 Disorder of the skin and subcutaneous tissue, unspecified
CPT/HCPCS: 36415; 80053; 80178; 81003; 81015; 85027; 86593

== ENCOUNTER 2021-01-11 15:20 | Inpatient (IN) | payer OTHER ==
[2021-01-11 17:32] VITALS: BMI 24.0
[2021-01-11] MEDS ORDERED: NICOTINE POLACRILEX 2 MG GUM BUC PRN (17:45)
[2021-01-11] MEDS ORDERED: methaDONE HCL 10 MG TABLET (FOR DETOX USE ONLY) PO ONE (17:45)
[2021-01-11] MEDS ORDERED: NICOTINE 14 MG/24 HOURS TOPICAL PATCH TD PRN (17:45)
[2021-01-11] MEDS ORDERED: MENTHOL/PHENOL 1 EACH UD MM PRN (17:45)
[2021-01-11] MEDS ORDERED: ACETAMINOPHEN 325 MG TABLET (FP) PO PRN (17:45)
[2021-01-11] MEDS ORDERED: cloNIDine HCL 0.1 MG TABLET PO PRN (17:45)
[2021-01-11] MEDS ORDERED: BISMUTH SUBSALICYLATE 524 MG/30 ML PO PRN (17:45)
[2021-01-11] MEDS ORDERED: IBUPROFEN 400 MG TABLET (FP) PO PRN (17:45)
[2021-01-11] MEDS ORDERED: MAGNESIUM CITRATE 300 ML BOTTLE PO PRN (17:45)
[2021-01-11] MEDS ORDERED: ONDANSETRON *ODT* 4 MG TABLET SL PRN (17:45)
[2021-01-11] MEDS ORDERED: MAGNESIUM HYDROX 2400MG/30ML ORAL SUSPENSION 30 ML CUP PO PRN (17:45)
[2021-01-11] MEDS: hydrOXYzine PAMOATE 25 MG CAPSULE (FP) PO SCH ×2 (20:07→22:23)
[2021-01-11] MEDS: PRENATAL VITAMINS W/ FOLIC ACID TABLET (FP) PO SCH (20:09)
[2021-01-11] MEDS: THIAMINE HCL 100 MG TABLET (FP) PO SCH (22:23)
[2021-01-11] MEDS: MELATONIN 5 MG TABLETS PO SCH (22:23)
[2021-01-12] MEDS: hydrOXYzine PAMOATE 25 MG CAPSULE (FP) PO SCH ×5 (05:32→22:18)
[2021-01-12] MEDS ORDERED: methaDONE HCL 10 MG TABLET (FOR DETOX USE ONLY) ONE (09:04)
[2021-01-12] MEDS: PRENATAL VITAMINS W/ FOLIC ACID TABLET (FP) PO SCH (10:18)
[2021-01-12 10:29] LABS: HEMATOCRIT 43.7 % (35.4-49); HEMOGLOBIN 15.2 GM/dL (11.7-16.9); MCH 32.5 pg (25.7-33.7); MCHC 34.8 g/dl (32.0-35.9); MEAN CELL VOLUME 93.4 fl (80-96); MEAN PLT VOLUME 9.6 fl (7.5-11.1); PLATELET COUNT 198 10^3/uL (134-434); RBC 4.68 M/mm3 (4.00-5.60); RDW 14.9 % (11.9-15.9); WHITE BLOOD COUNT 6.4 K/mm3 (4.0-10.0)
[2021-01-12 11:45] LABS: CALCIUM 9.1 mg/dL (8.5-10.1)
[2021-01-12 11:46] LABS: ALBUMIN 3.4 g/dl (3.4-5.0); BLOOD UREA NITROGEN 17.7 mg/dL (7-18)
[2021-01-12 11:48] LABS: BILIRUBIN,TOTAL 0.7 mg/dL (0.2-1)
[2021-01-12 11:49] LABS: TOT PROT 7.9 g/dl (6.4-8.2)
[2021-01-12] MEDS: THIAMINE HCL 100 MG TABLET (FP) PO SCH (22:18)
[2021-01-12] MEDS: MELATONIN 5 MG TABLETS PO SCH (22:19)
[2021-01-13] MEDS: hydrOXYzine PAMOATE 25 MG CAPSULE (FP) PO SCH ×5 (05:29→23:13)
[2021-01-13] MEDS ORDERED: methaDONE HCL 10 MG TABLET (FOR DETOX USE ONLY) PO ONE (10:00)
[2021-01-13] MEDS: PRENATAL VITAMINS W/ FOLIC ACID TABLET (FP) PO SCH (10:10)
[2021-01-13 10:47] LABS: BLOOD UREA NITROGEN 15.2 mg/dL (7-18); CALCIUM 8.5 mg/dL (8.5-10.1)
[2021-01-13 10:51] LABS: CREATININE 1.1 mg/dL (0.55-1.3)
[2021-01-13] MEDS: MELATONIN 5 MG TABLETS PO SCH (23:13)
[2021-01-13] MEDS: THIAMINE HCL 100 MG TABLET (FP) PO SCH (23:13)
[2021-01-14] MEDS: hydrOXYzine PAMOATE 25 MG CAPSULE (FP) PO SCH ×6 (05:31→22:17)
[2021-01-14] MEDS ORDERED: methaDONE HCL 10 MG TABLET (FOR DETOX USE ONLY) ONE (09:01)
[2021-01-14] MEDS: PRENATAL VITAMINS W/ FOLIC ACID TABLET (FP) PO SCH (10:21)
[2021-01-14] MEDS: METHOCARBAMOL 500 MG TABLET PO PRN ×2 (10:22→22:17)
[2021-01-14] MEDS: MELATONIN 5 MG TABLETS PO SCH (22:17)
[2021-01-14] MEDS: THIAMINE HCL 100 MG TABLET (FP) PO SCH (22:17)
[2021-01-15] MEDS: hydrOXYzine PAMOATE 25 MG CAPSULE (FP) PO SCH ×5 (05:30→22:06)
[2021-01-15] MEDS ORDERED: methaDONE HCL 10 MG TABLET (FOR DETOX USE ONLY) PO ONE (10:00)
[2021-01-15] MEDS: PRENATAL VITAMINS W/ FOLIC ACID TABLET (FP) PO SCH (10:16)
[2021-01-15] MEDS: METHOCARBAMOL 500 MG TABLET PO PRN (10:18)
[2021-01-15] MEDS: NICOTINE 10 MG CARTRIDGE (INHALER) IH PRN (15:32)
[2021-01-15] MEDS: MELATONIN 5 MG TABLETS PO SCH (22:06)
[2021-01-15] MEDS: THIAMINE HCL 100 MG TABLET (FP) PO SCH (22:06)
[2021-01-16] MEDS: hydrOXYzine PAMOATE 25 MG CAPSULE (FP) PO SCH ×5 (05:21→21:46)
[2021-01-16] MEDS: NICOTINE 10 MG CARTRIDGE (INHALER) IH PRN ×2 (10:06→21:46)
[2021-01-16] MEDS: PRENATAL VITAMINS W/ FOLIC ACID TABLET (FP) PO SCH (10:06)
[2021-01-16] MEDS: MELATONIN 5 MG TABLETS PO SCH (21:46)
[2021-01-16] MEDS: THIAMINE HCL 100 MG TABLET (FP) PO SCH (21:46)
[2021-01-17] MEDS: hydrOXYzine PAMOATE 25 MG CAPSULE (FP) PO SCH ×3 (05:54→14:52)
[2021-01-17] MEDS: PRENATAL VITAMINS W/ FOLIC ACID TABLET (FP) PO SCH (09:28)
[2021-01-17] MEDS: METHOCARBAMOL 500 MG TABLET PO PRN (09:30)
[2021-01-17] MEDS: NICOTINE 10 MG CARTRIDGE (INHALER) IH PRN ×2 (09:30→16:49)
[2021-01-17] MEDS: MELATONIN 5 MG TABLETS PO SCH (21:06)
[2021-01-17] MEDS: THIAMINE HCL 100 MG TABLET (FP) PO SCH (21:06)
[2021-01-18] MEDS: PRENATAL VITAMINS W/ FOLIC ACID TABLET (FP) PO SCH (09:31)
[2021-01-18] MEDS: NICOTINE 10 MG CARTRIDGE (INHALER) IH PRN ×3 (09:32→21:52)
[2021-01-18] MEDS: hydrOXYzine PAMOATE 25 MG CAPSULE (FP) PO PRN ×2 (10:48→21:50)
[2021-01-18] MEDS: METHOCARBAMOL 500 MG TABLET PO PRN ×2 (10:48→21:50)
[2021-01-18] MEDS ORDERED: PT OWN MED DRAWER 7, Y5N ONE (12:00)
[2021-01-18] MEDS: MELATONIN 5 MG TABLETS PO SCH (21:50)
[2021-01-18] MEDS: THIAMINE HCL 100 MG TABLET (FP) PO SCH (21:50)
[2021-01-18] MEDS: ACETAMINOPHEN 325 MG TABLET (FP) PO PRN (21:51)
[2021-01-19] MEDS: MAG HYDROX/AL HYDROX/SIMETH 30 ML UNIT-DOSE CUP PO PRN ×2 (00:14→21:08)
[2021-01-19] MEDS ORDERED: PT OWN MED DRAWER 7, Y5N ONE (09:30)
[2021-01-19] MEDS: hydrOXYzine PAMOATE 25 MG CAPSULE (FP) PO PRN ×2 (09:37→21:08)
[2021-01-19] MEDS: METHOCARBAMOL 500 MG TABLET PO PRN (09:37)
[2021-01-19] MEDS: PRENATAL VITAMINS W/ FOLIC ACID TABLET (FP) PO SCH (09:37)
[2021-01-19] MEDS: NICOTINE 10 MG CARTRIDGE (INHALER) IH PRN ×2 (09:38→21:09)
[2021-01-19] MEDS: MELATONIN 5 MG TABLETS PO SCH (21:08)
[2021-01-19] MEDS: THIAMINE HCL 100 MG TABLET (FP) PO SCH (21:08)
[2021-01-20] MEDS: NICOTINE 10 MG CARTRIDGE (INHALER) IH PRN ×2 (06:12→13:56)
[2021-01-20] MEDS: PRENATAL VITAMINS W/ FOLIC ACID TABLET (FP) PO SCH (09:43)
[2021-01-20] MEDS: METHOCARBAMOL 500 MG TABLET PO PRN (09:45)
[2021-01-20] MEDS: hydrOXYzine PAMOATE 25 MG CAPSULE (FP) PO PRN (09:46)
[2021-01-20] MEDS: MELATONIN 5 MG TABLETS PO SCH (21:10)
[2021-01-20] MEDS: THIAMINE HCL 100 MG TABLET (FP) PO SCH (21:10)
[2021-01-21] MEDS: PRENATAL VITAMINS W/ FOLIC ACID TABLET (FP) PO SCH (09:26)
[2021-01-21] MEDS: NICOTINE 10 MG CARTRIDGE (INHALER) IH PRN ×2 (09:27→17:44)
[2021-01-21] MEDS: MELATONIN 5 MG TABLETS PO SCH (22:04)
[2021-01-21] MEDS: THIAMINE HCL 100 MG TABLET (FP) PO SCH (22:04)
[2021-01-21] MEDS: METHOCARBAMOL 500 MG TABLET PO PRN (22:04)
[2021-01-22] MEDS: NICOTINE 10 MG CARTRIDGE (INHALER) IH PRN ×2 (09:13→22:21)
[2021-01-22] MEDS: METHOCARBAMOL 500 MG TABLET PO PRN ×2 (09:13→21:17)
[2021-01-22] MEDS: hydrOXYzine PAMOATE 25 MG CAPSULE (FP) PO PRN ×2 (09:13→21:17)
[2021-01-22] MEDS: PRENATAL VITAMINS W/ FOLIC ACID TABLET (FP) PO SCH (09:13)
[2021-01-22] MEDS ORDERED: PT OWN MED DRAWER 7, Y5N ONE (12:01)
[2021-01-22] MEDS: THIAMINE HCL 100 MG TABLET (FP) PO SCH (21:17)
[2021-01-22] MEDS: MELATONIN 5 MG TABLETS PO SCH (21:19)
[2021-01-23] MEDS: PRENATAL VITAMINS W/ FOLIC ACID TABLET (FP) PO SCH (09:34)
[2021-01-23] MEDS: hydrOXYzine PAMOATE 25 MG CAPSULE (FP) PO PRN ×2 (09:35→22:09)
[2021-01-23] MEDS: METHOCARBAMOL 500 MG TABLET PO PRN ×2 (09:35→22:09)
[2021-01-23] MEDS: NICOTINE 10 MG CARTRIDGE (INHALER) IH PRN ×3 (09:36→22:11)
[2021-01-23] MEDS: MELATONIN 5 MG TABLETS PO SCH (22:09)
[2021-01-23] MEDS: ACETAMINOPHEN 325 MG TABLET (FP) PO PRN (22:09)
[2021-01-23] MEDS: THIAMINE HCL 100 MG TABLET (FP) PO SCH (22:09)
[2021-01-24] MEDS: PRENATAL VITAMINS W/ FOLIC ACID TABLET (FP) PO SCH (09:27)
[2021-01-24] MEDS: NICOTINE 10 MG CARTRIDGE (INHALER) IH PRN ×2 (09:28→21:15)
[2021-01-24] MEDS: METHOCARBAMOL 500 MG TABLET PO PRN ×2 (09:28→21:12)
[2021-01-24] MEDS: hydrOXYzine PAMOATE 25 MG CAPSULE (FP) PO PRN (09:28)
[2021-01-24] MEDS ORDERED: PT OWN MED DRAWER 7, Y5N ONE (16:00)
[2021-01-24] MEDS: MELATONIN 5 MG TABLETS PO SCH (21:12)
[2021-01-24] MEDS: THIAMINE HCL 100 MG TABLET (FP) PO SCH (21:13)
[2021-01-24] MEDS: ACETAMINOPHEN 325 MG TABLET (FP) PO PRN (21:13)
[2021-01-25] MEDS: NICOTINE 10 MG CARTRIDGE (INHALER) IH PRN (06:49)
[2021-01-25 07:07] VITALS: BP 120/84; PULSE 80; TEMP 96.9
[2021-01-25] MEDS: hydrOXYzine PAMOATE 25 MG CAPSULE (FP) PO PRN (09:09)
[2021-01-25] MEDS: PRENATAL VITAMINS W/ FOLIC ACID TABLET (FP) PO SCH (09:09)
== END 2021-01-25 09:30 | disposition home or self-care (01) | DRG 895 ==
LOC: YASAS 15:20 → Y6N 19:02 → UNDODISIN 01-16 15:21 → Y5N 01-16 15:50
PROVIDERS: ADMIT Allergy & Immunology; ATTEND Allergy & Immunology
PROC: HZ42ZZZ Group Counseling for Substance Abuse Treatment, Cognitive-Behavioral (ICD-10-PCS; principal; 2021-01-11)
DX: F11.20 Opioid dependence, uncomplicated (principal); F14.20 Cocaine dependence, uncomplicated; F12.20 Cannabis dependence, uncomplicated; F17.210 Nicotine dependence, cigarettes, uncomplicated; F31.9 Bipolar disorder, unspecified; Z21 Asymptomatic human immunodeficiency virus [HIV] infection status; B18.2 Chronic viral hepatitis C; Z99.89 Dependence on other enabling machines and devices; Z91.14 Patient's other noncompliance with medication regimen; Z56.0 Unemployment, unspecified
CPT/HCPCS: 36415; 80048; 80053; 82962; 85027; 86780; C9803; U0003; U0005